=== PATIENT | male | born 1990 | race Caucasian/White ===

== ENCOUNTER 2024-10-28 08:00 | Outpatient (RCR) | payer MEDICAID, SELFPAY ==
--- NOTE | 2024-10-28 10:10 | BH.SGPN.GN ---
Behaviors/Verbalizations/Mental Status: []Pt alert and oriented, casually dressed and groomed. Eye contact good. Motor activity appropriate. Speech within normal limits. Affect congruent, mood depressed and anxious. Thoughts linear, logical, no signs of hallucinations or delusions. Client Response/Progress/Benefit: [] Pt was an active?participant in small group discussion. Pt?s group worked together to identify benefits of healthy relationships which included insight, accountability, and guidance. Group identified factors that lead to unhealthy relationships. Pt?s personal factors included past negative experience and poor boundaries. Actively participated in group experiential activity and expressed ideas to group. Benefited from increased insight and awareness of benefits of healthy relationships and factors that contribute to unhealthy relationships. Will continue IOP tx to promote mood stability, increase self-compassion, and improve daily functioning. Narrative Note: []
--- NOTE | 2024-10-28 11:10 | BH.SGPN.GN ---
Behaviors/Verbalizations/Mental Status: [] Pt alert and oriented, casually dressed and groomed. Eye contact good. Motor activity appropriate. Speech within normal limits. Affect congruent, mood anxious, Thoughts linear, logical, no signs of hallucinations or delusions. Client Response/Progress/Benefit: [] Client responded well to session, engaged and taking notes throughout. Worked with group to connect components of the experiential activity with characteristics of healthy and unhealthy relationships. Attentive during psychoeducation about characteristics of healthy, unhealthy, and abusive relationships. Client reported he would like to continue to improve communication by starting to slowly open up about feelings in IOP. Appeared to benefit from identifying current healthy relationship attributes and an area client wants to work on to build healthier relationships. Client to continue IOP to improve daily functioning, increase healthy coping skills, and prevent decompensation.
--- NOTE | 2024-10-28 14:27 | BH.MDN ---
Multi-Disciplinary Note Note 45-min Individual: Time Started:: 08:50 60-min Individual: Time Started:: 08:50 Date: 10/28/24 Purpose of session/treatment goals addressed:: To gather information on pt's treatment goals, presenting problems, history, and past treatment. Another goal was to build rapport and complete the suicide assessment screening. Eye Contact:: Good Motor Activity:: Appropriate Appearance:: Neat and Casual Speech:: Appropriate Mood:: Anxious and Depressed Affect:: Congruent Thoughts:: Linear, Logical and No evidence of hallucinations/delusions noted Staff Interventions:: CBT techniques, rapport building, strengths perspective, treatment planning, completed risk assessment / safety planning (completed CSSR-S) and goal setting Client Response:: Pt responded well to session, open to meeting with therapist. Pt referred to [email or web address] by his aoc plans intelligence officer after missing an appointment with probation due to his mental health. Pt reports he has been struggling with mental health for many years as pt recalls depression and anxiety since graduating high school. Reports his depression and anxiety have been gradually worsening in the last 8 years following the end of a 10 year relationship. Reports that he began drinking alcohol shortly after the relationship ended and began to struggle with alcohol misuse until September of 2023 when he got sober following legal issues stemming from his alcohol use. Pt was charged with assault at that time and has been on probation for the past year. Although sobriety has been a condition of his probation, he reports plans to maintain sobriety once off probation as well. Insight into the effects alcohol has had on his mental health and relationships. Pt reports that in the last year his mental health has significantly declined to the point of losing his job because he stopped showing up due to his depression. Went on to explain that he has struggled with basic functioning over that past few months as he has no energy or motivation, hopelessness and worthlessness, apathy, and loss of purpose. Explained that he has struggled with feeling like a failure which has caused his to self-sabotage relationships, his most recent job, and become estranged from his 12-year-old daughter. Expressed a desire to have a relationship with his daughter but does not feel he deserves to be in her life and has distanced himself as a result. Identified wanting to be able to better accept and love himself and is hopeful that [facility] treatment will aid in his ability to do so. Risks/Concerns:: Pt has a hx of SI, but denies any in the past few weeks. Identifies protective factors and reports ability to maintain safety. Progress Toward Goals/Plan:: Pt's first day of IOP tx. Pt shared he has never done group therapy in the past, but is keeping an open mind. Pt does not have any outpatient providers but is open to re-establishing care. Pt wants to focus on reducing the impact his mental health has on his life. Pt wants to isolate less, challenge negative thoughts, and be able to function more effectively. Pt will continue IOP tx to prevent decompensation, improve daily functioning, and gain healthy coping skills. Time Stopped:: 09:50
--- NOTE | 2024-10-28 15:00 | BH.MTP ---
[facility] Patient Information Program Physician:: Dr. Shelia Mae Primary Therapist:: KARLIE Haley Psychiatric Diagnoses Psychiatric Diagnoses:: 1.Major depressive disorder, recurrent, severe without psychosis 2. Generalized anxiety disorder 3. Alcohol use disorder in full remission for 1 year Diagnosis Code(s):: F 33.2 Estimated LOS Estimated LOS (in weeks):: 6 Problem/Goal #1 Problem/Goal #1 Stated Goal:: Pt will increase mood stability by reducing hopelessness, worthlessness, guilt, and suicidal ideations. Description of Barriers: Pt reports negative core beliefs. Pt also has history of impulsive behavior from prior substance use, currently sober, that has led to self-deprecation and legal issues. Pt also has limited support and hx of significant isolation and low motivation. Functional Impact: Pt is a 34 year-old male with a history of major depressive disorder, anxiety, PTSD, and substance use issues, sober 1 year. Pt was referred to [facility] by his investigation officer due to worsening symptoms of depression, isolation, and apathy over the past several months resulting in pt losing his job and missing probation meetings. At admission, pt endorses a depressed mood, excessive guilt, passive SI, lack of energy, lack of motivation, feeling like a burden, and anhedonia. Pt also reports anxiety, restlessness, and isolation. Goal Relevant Strengths/Supports: Pt is sober from alcohol. Pt is intelligent and has a desire to improve. Objectives Objective #1: Stated Objective: Pt will learn and utilize 2-3 healthy coping strategies to better manage depressive symptoms and reduce suicidal ideations as shown by a decrease of DMS-5 symptoms for depression and SI. Interventions: Through group and individual sessions, therapist will help pt identify triggers and warning signs of depression and guilt including emotional, physical, and behavioral changes. Therapist will teach pt various coping skills to manage symptoms and give pt tangible resources to use to regulate emotions. Therapist will use cognitive restructuring techniques and help pt gain awareness of negative thoughts that reinforce guilt and depression. Therapist will provide psychoeducation on maintenance cycles and help pt learn ways to break unhealthy maintenance cycles. Therapist will help pt incorporate behavioral activation and assist pt in setting SMART goals. Discharge Criteria: Pt will have met this goal when can report learning and using at least 2 coping skills to manage depressive symptoms and reduce isolation. Additionally, pt will have met this goal when pt's DSM-5 scores for depression decrease. Target Date: 12/12/24 Review Date: 11/19/24 Objective #2: Stated Objective: Pt will identify at least 2-3 negative self-talk messages used to reinforce negative core beliefs, worthlessness, and isolation and replace thoughts with balanced, realistic messages. Interventions: Therapist will help pt identify distorted, negative beliefs about self and replace with more realistic, affirmative messages. Therapist will use CBT and DBT to help pt increase insight to the connection between thoughts, emotions, and behaviors. Therapist will encourage pt to practice thought challenging. Discharge Criteria: Pt will have achieved this goal when can verbalize at least 2 cognitive distortions and effectively replace those thoughts with affirmative messages. Target Date: 12/12/24 Review Date: 11/19/24 Problem/Goal #2 Problem/Goal #2 Stated Goal:: Will reduce intensity of anxiety symptoms and improve ability to function through IOP program. Description of Barriers: Pt reports negative core beliefs. Pt also has history of impulsive behavior from prior substance use, currently sober, that has led to self-deprecation and legal issues. Pt also has limited support and hx of significant isolation and low motivation. Functional Impact: Pt is a 34 year-old male with a history of major depressive disorder, anxiety, PTSD, and substance use issues, sober 1 year. Pt was referred to [facility] by his investigation officer due to worsening symptoms of depression, isolation, and apathy over the past several months resulting in pt losing his job and missing probation meetings. At admission, pt endorses a depressed mood, excessive guilt, passive SI, lack of energy, lack of motivation, feeling like a burden, and anhedonia. Pt also reports anxiety, restlessness, and isolation. Goal Relevant Strengths/Supports: Pt is sober from alcohol. Pt is intelligent and has a desire to improve. Objectives Objective #1: Stated Objective: Pt will identify 2-3 anxiety triggers and 2 coping skills to use when feeling anxious to manage anxiety as shown by reducing DSM-5 scores for anxiety Interventions: Therapist will provide education on anxiety, avoidance behaviors, and maintenance cycles. Therapist will help pt explore personal symptoms and warning signs of anxiety. Therapist will teach pt coping skills to improve emotional regulation, mindfulness, and distress tolerance to help pt cope with anxiety in the moment. Discharge Criteria: Pt will have accomplished this goal when he can identify at least 2 triggers and report using 2 coping skills to manage anxiety. Additionally, pt will have accomplished this goal AEB reduction of DSM-5 scores for anxiety. Target Date: 12/12/24 Review Date: 11/19/24 Objective #2: Stated Objective: Client will identify 2-3 cognitive distortions that lead to rumination and learn 2-3 ways to manage these thoughts to better manage anxiety. Interventions: Therapist will use CBT and DBT techniques to help client gain awareness of thinking errors and learn how to more effectively handle negative thoughts. Therapist will assist client in identifying, challenging, and replacing dysfunctional thoughts with positive, more realistic thoughts. Therapist will also use self-compassion to help client set more realistic expectations. Discharge Criteria: Client will be able to successfully identify and replace at least 2 cognitive distortions reinforcing anxiety sx. Target Date: 12/12/24 Review Date: 11/19/24
--- NOTE | 2024-10-28 15:15 | BH.COMM ---
Communication Note Communication with Client Communication Note: Met with pt to complete initial paperwork and administer the CSSR-S screening and risk assessment. Pt is a moderate risk as pt denies any active SI, plan, or intent, but he has passive SI every few days. Pt reports history of one self-aborted suicide attempt about two years ago following a period of heavy drinking. Pt reported he tried to access his father?s gun safe while intoxicated and planned to shoot himself outside on the property. Pt denies telling anyone at the time and gave up when unable to open the safe. Denies any other attempts but does admit to prior preparatory behavior around that time in which he wrote a suicide note. Denies history of self-harm. Lives with parents and all firearms are locked and pt does not know the combination. Sober since September 2023. Pt is future oriented. Pt reports ability to maintain safety today. Discussed case with Dr. Dunn and pt will be admitted to [facility] tx with a diagnosis of Major Depressive Disorder, severe without psychosis. F 33.2
--- NOTE | 2024-10-29 09:00 | BH.SGPN.GN ---
Behaviors/Verbalizations/Mental Status: [] Client alert and oriented, casual appearance. Eye contact good. Motor activity appropriate. Speech within normal limits. Affect congruent, mood anxious. Thoughts linear, logical, no signs of hallucinations or delusions. Reviewed client's symptom tracker, no risk for suicidal ideation, plan, or intent. Client Response/Progress/Benefit: [] Client responded well to session AEB listening to others and sharing thoughts/feelings. Per daily symptom tracker client reports a 0/5 for depression and 2/5 for anxiety. Client reported mental positive as showing back up to [facility] for his second day. Client shared prior to coming to IOP he mostly spent his day is not leaving his house for at least 2 months. Client stated additional month when starting to get back into playing the guitar. Client stated current stressors trying to adjust to being around a lot of different people while in IOP. Noted feeling happy today. Appeared to benefit from support from peers. Will continue IOP tx to improve daily functioning, increase healthy coping skills, and prevent decompensation. Narrative Note: []
--- NOTE | 2024-10-29 10:10 | BH.SGPN.GN ---
Behaviors/Verbalizations/Mental Status: [] Eye contact is good. Motor activity is appropriate. Appearance is casual. Speech is Appropriate. Mood is depressed/anxious. Affect is flat. Thoughts are linear and logical. No evidence of psychosis. Client Response/Progress/Benefit: [] Pt participated at times during the interactive group discussions. Along with peers contributed to interactive discussion on defining what a boundary is in mental health. Pt along with peers identified challenges to setting boundaries which included; people pleasing, possible conflict, possible abandonment, fear of rejection, fear of loss, fear people won't respect the boundary, etc. Pt worked well in small group in which they identified different types of boundaries (material, sexual, intellectual, physical, emotional) and provided examples. Pt benefited from increased awareness and insight on the challenges to setting boundaries and the types of boundaries. Will continue in IOP to prevent decompensation, stabilize mood, and improve functioning.
--- NOTE | 2024-10-29 11:10 | BH.SGPN.GN ---
Behaviors/Verbalizations/Mental Status: []Eye contact is good. Motor activity is appropriate. Appearance is casual. Speech is Appropriate. Mood is depressed and anxious. Affect is congruent. Thoughts are linear and logical. No evidence of psychosis. Client Response/Progress/Benefit: []Pt responded well to session AEB listening attentively to peers and taking notes throughout. Reports connecting with rigid boundaries much of the time, however did notice difficulties with porous boundaries within his friendships and romantic relationships. Participated in group discussion brainstorming various strategies for improving healthy boundary setting. Seemed to benefit from increased awareness of how different boundary styles can impact mental health. Will continue IOP tx to prevent decompensation, improve daily functioning, and increase mood stability. Narrative Note: []
--- NOTE | 2024-10-30 08:10 | BH.NA_ITS ---
Physical Data Vital Signs Pulse Rate: 75 Blood Pressure: 126/69 Height/Weight Height: 1.85 m Weight:: 68.039 kg Weight in Pounds: 150.0 lbs Nutritional History Appetite Nutritional Instructions: Describe your appetite:: Good Additional nutritional information:: Client denies change in his appetite, but does state some of his friends say he looks like he has lost weight. Functional Assessment Sleep Pattern Describe any problems with sleeping: Client states he is sleeping about 4-5 hours per night. Sensory/Communication Assess Communication Problems Do you have difficulty understanding what people are saying?: No Medical Problems/History Pain Assessment Do you have acute or chronic pain?: No Surgical History Surgical History Have you had any surgeries? If so, list type and date:: No Substance Abuse Substance Abuse Please describe substance abuse in the last 30 days:: Client states he used to drink 12-18 beers every day or every other day, but has been sober from alcohol for almost 1 year. Client states he smokes cigarettes, about 1 ppd since the age of 19. Client denies substance use. Client states he drinks 2 cups of coffee per day and usually has 1 energy drink in the afternoons. Discussed with client risks of high caffeine intake. Mental Status Summary Mental Status Significant Findings/Observations on Appearance and Mood:: Client is alert and oriented x 4. Client is casually groomed. Client is cooperative with assessment. Client makes good eye contact. Client's voice has normal rate and volume. Client has a restricted affect. Client makes logical associations and has normal processing. Client denies delusions/hallucinations. Client denies SI. Suicide Assessment Suicidal Ideation Are you currently or have you been suicidal in the past?: Yes Suicidal Intentional Rating Scale (SIRS): Suicidal thoughts (past) Physician Notification Past Psychiatric History MH Treatment Hx Past Psychiatric Medications:: Zoloft Age of first mental health symptoms: Client states he first took Zoloft for depression around age 29 and was on it for about a year. Describe (age, circumstance, etc) any past hospitalizations: None. Current providers for mental health treatment (counselor, psychiatrist, community case manager, etc.): None. Fall Risk Assessment Age Age: Less than 60 Mental Status Mental Status: Willing & able to ask for assistance when needed Physical Status Physical Status: No problems Impairments Impairments: None Elimination Elimination: Continent AND independent Gait or Balance Gait or Balance: Walks independently Hx of Falls History of falls in the past 6 months: No known history Medications/Substances Medications/substances used within the past 24 hours or ordered to administer: None of the medications/substances list above Total Score Total Points:: 0 RN Summary of Impressions Impressions Recommendations Impressions: Psychiatric Issues: 1. Major depressive disorder, recurrent, severe without psychosis 2. Generalized anxiety disorder 3. Alcohol use disorder in full remission for 1 year 4. Primary support, legal and work issues Level of Care How do the client's current symptoms and functional deficits support need for this level of care?: Client was referred to IOP by his civil preparedness training officer after he missed an appointment with his civil preparedness training officer and had a home visit that prompted his PO to refer him to IOP due to his mental health. Client states he has felt more depressed since July and has had difficulty performing daily activities and even getting out of bed in the mornings. Client reports he is isolating himself and does not enjoy activities like he used to. Client denies SI at this time. IOP will promote gains and prevent further decompensation while providing social support and skills training.
--- NOTE | 2024-10-30 09:00 | BH.SGPN.GN ---
Behaviors/Verbalizations/Mental Status: []Pt alert and oriented, neatly dressed and groomed. Eye contact fair. Motor activity appropriate. Speech within normal limits. Affect congruent, mood anxious. Thoughts linear, logical, no signs of hallucinations or delusions. Reviewed pt?s symptom tracker, no risk for suicidal ideation, plan, or intent 10/30/24 Client Response/Progress/Benefit: []Pt was an active participant in group discussions. Attentive. Able to identify mental health wins including getting to IOP today and waking up early without scrolling on my phone and he sketched instead. Pt's stressor today is he has not been able to work due to his mental health symptoms, so he has been anxious about finances. Pt stated pt is feeling content this morning. Pt receptive to feedback from peers which pt reported was helpful. Progress noted. Benefited from group support, encouragement, and feedback. Will continue in IOP to prevent decompensation, improve daily functioning, and increase distress tolerance. Narrative Note: []
[2024-10-30 09:53] VITALS: BP 126/69; PULSE 75
--- NOTE | 2024-10-30 10:10 | BH.SGPN.GN ---
Behaviors/Verbalizations/Mental Status: []Pt alert and oriented, casually dressed and groomed. Eye contact good. Motor activity appropriate. Speech within normal limits. Affect congruent, mood content. Thoughts linear, logical, no signs of hallucinations or delusions. Client Response/Progress/Benefit: [] Pt engaged participant AEB listening attentively to others and providing input throughout group. Pt worked within their small group to identify strategies to manage inappropriate guilt. Shared a personal example of inappropriate guilt as feeling guilty for making noise when a room is quiet. Insight this leads to fear that others will hate him and over apologizing or self-sabotage. Pt wants to work on combatting inappropriate guilt by challenging distortions and improving emotion regulation skills. Pt seemed to benefit from learning about strategies to manage appropriate and inappropriate guilt. Pt will continue IOP tx to reduce promote mood stability, reinforce healthy coping, and prevent decompensation. Narrative Note: []
--- NOTE | 2024-10-30 10:10 | BH.SGPN.GN ---
Behaviors/Verbalizations/Mental Status: []Pt alert and oriented, neatly dressed and groomed. Eye contact good. Motor activity appropriate. Speech within normal limits. Affect congruent, mood depressed and anxious. Thoughts linear, logical, no signs of hallucinations or delusions. Client Response/Progress/Benefit: [] Pt was an engaged participant AEB listening attentively to others, taking notes, and providing feedback in small group discussions. Attentive during psychoeducation AEB by note taking and providing some input. Pt worked along with peers in small groups to define inappropriate guilt and appropriate guilt. Worked well in small group with peers where they identified example of inappropriate vs appropriate guilt, and the impact inappropriate guilt can have on MH. Pt identified a personal example of inappropriate guilt as taking a day off work for his mental health and then ruminating. Benefited from increased awareness of guilt and the differences between appropriate and inappropriate guilt. Plan is to continue in IOP to prevent decompensation, gain healthy coping skills, and improve daily functioning. ? Narrative Note: []
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
--- NOTE | 2024-10-30 12:59 | BH.DR.ITP ---
Initial Treatment Plan Patient Information Visit Information: ADMISSION DATE: EXPECTED LOS: 4-6 weeks Problems/Symptoms Problem #1:: Depression Symptom:: Sadness, hopelessness, worthlessness, anhedonia, biological disruption of appetite and weight, biological disruption of sleep, low energy, decreased concentration, guilt, passive thoughts of Problem #2:: Anxiety Symptom:: Worry, rumination, history of panic attacks, avoidance
--- NOTE | 2024-11-03 09:00 | BH.SGPN.GN ---
Behaviors/Verbalizations/Mental Status: [] Client alert and oriented, casual appearance. Eye contact fair. Motor activity appropriate. Speech within normal limits. Affect congruent, mood anxious. Thoughts linear, logical, no signs of hallucinations or delusions. Reviewed client's symptom tracker, no risk for suicidal ideation, plan, or intent. Client Response/Progress/Benefit: [] Client responded well to session AEB listening to others and sharing thoughts/feelings. Per daily symptom tracker client reported a 1/5, with 5 representing severe, for depression and a 1/5 for anxiety. Client reported mental health positive as writing a song over the weekend which is something that typically makes him feel better. Client reported additional mental health positive as deciding he wants to take action by reconnecting with his ex to discuss having a more active role in his daughter's life. Client stated current stressor as feeling worried that him reaching out to his ex and her family will result in them not responding well. Appeared to benefit from support from peers. Will continue IOP tx to decrease anxious avoidance, increase use of healthy coping skills, and prevent decompensation.
--- NOTE | 2024-11-03 10:10 | BH.SGPN.GN ---
Behaviors/Verbalizations/Mental Status: [] Client alert and oriented, casually dressed and groomed. Eye contact good. Motor activity appropriate. Speech within normal limits. Affect congruent, mood euthymic, Thoughts linear, logical, no signs of hallucinations or delusions. Client Response/Progress/Benefit: [] Client responded well to session, contributing to discussion and engaged during the activity. Group identified the benefits of change which included: personal growth, increased confidence, improving mental health, progressing, and becoming resilient. Worked with the group to identify barriers to change, which included: fear of failure, lack of motivation, fear of the unknown, trauma, and negative thinking. Client participated along with group in activity where they discussed the emotions related to change. Benefited from increased awareness and understanding of emotions, benefits, and barriers related to change. Will continue IOP tx to increase emotional regulation skills and challenge negative thought patterns. Narrative Note: []
--- NOTE | 2024-11-03 11:10 | BH.SGPN.GN ---
Behaviors/Verbalizations/Mental Status: [] Client alert and oriented, casually dressed and groomed. Eye contact good. Motor activity appropriate. Speech within normal limits. Affect full, mood euthymic, Thoughts linear, logical, no signs of hallucinations or delusions. Client Response/Progress/Benefit: [] Client responded well to session, attentive. Did well to process activity and work with group to relate the strategies used to overcome barriers in the activity to managing change in own life. Client identified a change they would like to learn how to handle emotions. Client identified currently being in action stage for this particular change. Client stated goal is to see his daughter. Appeared to benefit from identifying a small goal to work towards. Client will continue IOP tx to prevent decompensation and increase overall functioning. Narrative Note: []
--- NOTE | 2024-11-06 09:05 | BH.SGPN.GN ---
Behaviors/Verbalizations/Mental Status: [] Eye contact is good. Motor activity is appropriate. Appearance is casual. Speech is Appropriate. Mood is depressed. Affect is congruent. Thoughts are linear and logical. No evidence of psychosis. Reviewed daily check in sheet and no reports of suicidal ideations or intent. Client Response/Progress/Benefit: [] Pt participated at times during the group discussions. Daily symptom tracker notes 11/16 for depression/anxiety. Shared with the group that he took a very big step in reconnecting with his 12 y/o daughter by reaching out his daughter's mother. Utilized several skills to follow through with this difficult task such as opposite-action, reframing, challenging thoughts, and sitting with the uncomfortable. Also made it through with holidays sober. Decreased isolation and engaged during the holidays. Overall progress noted. Limited stressors expect finances. Pt has not been to work in several months due to mental health. Benefited from group support, encouragement, and feedback. Will continue in IOP to prevent decompensation, stabilize mood, improve functioning to return to work, and increase healthy coping. Narrative Note: []
--- NOTE | 2024-11-06 10:10 | BH.SGPN.GN ---
Behaviors/Verbalizations/Mental Status: []Patient was alert and oriented, casually dressed and groomed. motor activity congruent. speech within normal limits. Affect congruent, mood anxious. Thoughts linear, logical, no signs of hallucinations or delusion. Client Response/Progress/Benefit: []Pt participated in the group discussions AEB nodding and taking notes. Attentive during psychoeducation Goal Setting. Participated during the discussion on common barriers. Pt stated a personal barrier to accomplishing goals are judgment of self that goals aren't hard enough and self-doubt. Group also identified benefits of goals as sense of purpose, improved self-confidence, more motivation for other goals, and improved mental health. Pt identified personal benefits to goal setting. Benefited from increased awareness of mental health benefits of goals as well as psychoeducation on SMART goal criteria. Will continue in IOP to decrease anxious avoidance, increasing healthy coping skills, and prevent decompensation.
--- NOTE | 2024-11-06 11:10 | BH.SGPN.GN ---
Behaviors/Verbalizations/Mental Status: [] Pt alert and oriented. Appearance is casual. Eye contact good. Motor activity appropriate. Speech within normal limits. Affect is depressed. Mood is congruent. Thoughts linear, logical, no signs of hallucinations or delusions. Client Response/Progress/Benefit: [] Pt was engaged during discussion and experiential activity. Completed the worksheet challenging them to develop a personal SMART goal. Pt chose a SMART goal to check in with his daughter's mother to show that he is stable and reliable once a week. Hopes that this will lead to having a relationship with is daughter which will improve his overall mental health. Identified obstacles as fear, isolation, and lack of support. Benefited from this group by developing a short-term SMART goal related to mental health. Will continue IOP to prevent decompensation, increase healthy coping, and improve functioning. Narrative Note: []
--- NOTE | 2024-11-07 09:00 | BH.SGPN.GN ---
Behaviors/Verbalizations/Mental Status: [] Eye contact is good. Motor activity is appropriate. Appearance is casual. Speech is Appropriate. Mood is depressed. Affect is congurent. Thoughts are linear and logical. No evidence of psychosis. Reviewed daily check in sheet and no reports of suicidal ideations or intent. Client Response/Progress/Benefit: [] Pt participated at times during the group discussions. Attentive. Shared that he has been practicing and utilizing skills such as thought challenging and reframing. Feels that he is getting better at these skills which has led to improve mental health, decreased isolation, increased socialization, and increase engagement with life and support. Progress noted. Benefited from group support, encouragement, and feedback. Will continue in IOP to prevent decompensation, decrease isolation, increase healthy coping, and improve functioning to return to work. Narrative Note: []
--- NOTE | 2024-11-07 10:10 | BH.SGPN.GN ---
Behaviors/Verbalizations/Mental Status: []Eye contact is fair. Motor activity is appropriate. Appearance is casual. Speech is Appropriate. Mood is anxious. Affect is congruent. Thoughts are linear and logical. No evidence of psychosis. Client Response/Progress/Benefit: [] Pt was engaged and participating throughout, providing input and taking notes. Participated in an interactive discussion on defining anxiety and identifying cognitive and physiological symptoms of anxiety. The group discussed the role of anxiety on isolation, avoidance, and who this emotion impacts their ability to start and complete activities/goals. Pt identified their physical/physiological signs of anxiety which includes: rapid breathing, shaky hands, neck pain, and increased heart rate. Benefited from increased awareness and insight on anxiety and its impact. Will continue in IOP to decrease anxious avoidance, increase healthy coping skills, and prevent decompensation.
--- NOTE | 2024-11-07 11:30 | BH.MDN ---
Multi-Disciplinary Note Note 30-min Individual: Time Started:: 11:30 Date: 11/07/24 Purpose of session/treatment goals addressed:: Utilized the session to review progress and current symptoms as well as further clarify treatment plan goals. Eye Contact:: Good Motor Activity:: Appropriate Appearance:: Casual Speech:: Appropriate Mood:: Anxious Affect:: Congruent Thoughts:: Linear, Logical and No evidence of hallucinations/delusions noted Staff Interventions:: psychoeducation on: (briefly discussed cognitive distortions. ), rapport building and treatment planning Client Response:: According to pt his first week in IOP has been beneficial. I feel so much better when I'm doing something. Significant isolation and avoidance for several months prior to IOP. Benefiting from psychoeducation and support. Nice to know I'm not the only one with these issues. Also believes that facing his mental health rather than avoiding it has been very helpful and motivating as well. In discussing goals pt identified that he struggles to take action for fear of failing or not being perfect. Discussed perfectionistic beliefs and unrealistic expectations of himself. These unrealistic expectations have been an obstacles to having a relationship with his daughter. Hoping that through IOP and mental health treatment he can work to reconnect with his ex (Zoila) and their child. Has not spoken with ex in over a year, however did recently reach out to ex's mother. Shared that he will function well for several months and then begin to slowly decompensate to the point of severe isolation, not showing up for work, and not engaging with family. He feels his depression worsening however feels powerless. Agreeable that a concrete plan to use when depressed would be helpful. Risks/Concerns:: No risks or concerns noted. Denies SI, plan, or intent. Progress Toward Goals/Plan:: Progress noted as he reports begin to utilize coping strategies such as opposite-action, reframing, and thought challenging. Decreased isolation, increased energy, and increase social engagement. Consistent attendance. Appears engaged in groups. Started a new medication. Pt has several mistaken core beliefs and cognitive distortions that inhibit his ability to take action on goals, work, and overall functioning. Recent severe isolation related to depressive episode resulted in consequences from PO, job, and relationships. Will continue in IOP to prevent decompensation, stabilize mood, increase healthy coping, and improve functioning to return to work. Time Stopped:: 12:00
--- NOTE | 2024-11-11 09:05 | BH.SGPN.GN ---
Behaviors/Verbalizations/Mental Status: [] Pt alert and oriented, casually dressed and groomed. Eye contact good. Motor activity appropriate. Speech within normal limits. Affect congruent, mood content. Thoughts linear, logical, no signs of hallucinations or delusions. Reviewed pt?s symptom tracker, no risk for suicidal ideation, plan, or intent 11/11/24 Client Response/Progress/Benefit: [] Pt was an active participant in group discussions. Attentive. Able to identify mental health wins including focusing on what is in his control while family was visiting and challenging himself not to let small comments bother him. Additional win noted as asking to borrow his mother's vehicle, explaining that he often struggles with asking for things from others. Current stressor noted as finances. Benefited from group support, encouragement, and feedback. Will continue in IOP to prevent decompensation, promote mood stability, and continue to improve use of thought challenging. Narrative Note: []
--- NOTE | 2024-11-11 10:10 | BH.SGPN.GN ---
Behaviors/Verbalizations/Mental Status: [] Eye contact is fair. Motor activity is appropriate. Appearance is casual. Speech is Appropriate. Mood is dysthymic. Affect is congruent. Thoughts are linear and logical. No evidence of psychosis. Client Response/Progress/Benefit: [] Pt was an active participant in group discussions. Attentive during psychoeducation. Contributed during interactive discussions in which peers attempted to define crisis. Group identified crisis examples. Group also worked together to identify warning signs and unhealthy responses to crisis which included shutting down, isolation, avoidance, over-thinking, disordered eating, and self-harm. Pt identified top 3 warning signs as: increased negative thinking, overuse of distractions, and lack of self-care. Benefited from increased understanding of crisis and awareness of personal responses to crisis. Pt will continue IOP tx to decrease anxious avoidance, improve use of healthy coping, and prevent decompensation.
--- NOTE | 2024-11-11 11:15 | BH.SGPN.GN ---
Behaviors/Verbalizations/Mental Status: []Pt alert and oriented, appropriate grooming/appearance. Eye contact fair. Motor activity appropriate. Speech within normal limits. Affect congruent, mood anxious. Thoughts linear, logical, no signs of hallucinations or delusions. Client Response/Progress/Benefit: [] Pt was an active participant in group discussions. Attentive during psychoeducation. In small group pt along with peers developed an active plan for their crisis warning signs. Pt identified three crisis warning signs as well as an action plan for each. One crisis warning sign was increased negative thinking. Pt identified strategies to help with this such as: opposite action, taking notice of ?when I?m being self-critical?, and telling himself two mental health wins. Benefited from increased awareness of crisis warning signs and by developing crisis intervention strategies. Will continue in IOP to reduce negative thinking patterns, improve daily functioning, and reduce avoidance. Narrative Note: []
== END 2024-11-11 23:59 ==
LOC: BHIOP 08:00
PROVIDERS: Referring Provider Psychiatry & Neurology Psychiatry; Visit Provider Psychiatry & Neurology Psychiatry
DX: F33.2 Major depressive disorder, recurrent severe without psychotic features (principal)
CPT/HCPCS: H2012; H2020; S9480; 90832; 90837

== ENCOUNTER 2024-11-13 07:08 | Outpatient (RCR) | payer MEDICAID, SELFPAY ==
[2024-11-12 00:30] VITALS: BP 126/69; PULSE 75
--- NOTE | 2024-11-13 10:10 | BH.SGPN.GN ---
Behaviors/Verbalizations/Mental Status: [] Eye contact is good. Motor activity is appropriate. Appearance is casual. Speech is Appropriate. Mood is dysthymic. Affect is congruent. Thoughts are linear and logical. No evidence of psychosis. Client Response/Progress/Benefit: [] pt was an active participant in group discussion. Engaged and attentive during psychoeducation and interactive discussion on coping skills, why people use unhealthy coping skills, how to replace unhealthy coping skills, and internal vs external coping skills. Attentive as peers came up with list of unhealthy coping skills. Group discussed the effects of maladaptive coping skills on mental health. Benefited from increased understanding of unhealthy coping skills and the need for developing healthy internal and external coping skills. Actively participated during experiential group activity and was able to related this activity to group topic. Will continue in IOP to prevent decompensation, decrease isolation, increase healthy coping, and improve functionoing. Narrative Note: []
--- NOTE | 2024-11-13 11:15 | BH.SGPN.GN ---
Behaviors/Verbalizations/Mental Status: []Pt alert and oriented, casually dressed and groomed. Eye contact good. Motor activity appropriate. Speech within normal limits. Affect congruent, mood anxious and dysthymic. Thoughts linear, logical, no signs of hallucinations or delusions. Client Response/Progress/Benefit: [] Pt responded well to session, taking notes and contributing when prompted. Group discussed the different categories of coping skills which included distraction, emotional release, grounding, self-love, and thought challenging. Pt participated in creating a coping skills ?menu? from the different categories of coping skills. Pt's coping skill menu included: walks, talking to supports, 5-senses, and self-compassion. Appeared to benefit from increasing repertoire of healthy coping skills. Will continue IOP to prevent decompensation, improve daily functioning, and promote mood stability. Narrative Note: []
--- NOTE | 2024-11-13 12:15 | BH.MDN ---
Multi-Disciplinary Note Note 60-min Individual: Time Started:: 09:00 Date: 11/13/24 Purpose of session/treatment goals addressed:: Purpose of session was to discuss current sx, stressors, and areas of progress. Additionally, began working on challenging distortions reinforcing anxiety and feelings of shame. Eye Contact:: Good Motor Activity:: Appropriate Appearance:: Neat and Casual Speech:: Appropriate Mood:: Euthymic and Anxious Affect:: Congruent Thoughts:: Linear, Logical and No evidence of hallucinations/delusions noted Staff Interventions:: thought challenging, psychoeducation on: (shame vs. guilt, introduce cognitive distortions), CBT techniques, strengths perspective and goal setting Client Response:: Pt responded well to session, open to meeting with therapist. Pt reported he has overall been doing well the last few weeks and finds IOP treatment to be beneficial. Reports connected with fellow participants and is making connections to information he is learning in group sessions. Noted that his consumer safety officer has noticed improvements in his mood and motivation levels and has dropped pt?s required probation meetings down to 1x/monthly. Reflected on the support the probation department has provided him and that he has been pleasantly surprised by this. Went on to indicate that he still has not followed through with the goal of reaching out to his former employer. Noted discussing this with his consumer safety officer and that she had aided in challenging pt?s thoughts about this. Shared struggling however with ?feeling silly?, not wanting to be center of attention, and shame. Receptive of discussion reviewing guilt vs. shame and out his behaviors from personal identity. Did well to work with therapist on challenging associated distortions and identifying the likelihood of his catastrophizing thoughts actually occurring. Expressed feeling more comfortable having the conversation in person and does better with deadlines. Identified a goals of stopping in to discuss employment and apologize this coming Sunday. Shared ?I just need to do it, I?ll feel better if I do?. Pt went on to report that since ~[age] years old he has struggled with knowing who he is and how to show up for himself. Reports he used to be very outgoing in high school but has become more reserved and concerned about other?s opinions of his since. Shared wanting to work on self-confidence as he feels this has held him back and reinforced a lot of his negative core beliefs about self and fear of failing. Identified his younger brother is most similar to him and believes that if he can work on being more comfortable with vulnerability, he may feel more confident in himself as a result. Reports plans to reach out to him regarding his mental health as well. Risks/Concerns:: No SI or thoughts of as of this date 11/13/24 Progress Toward Goals/Plan:: Progress noted. Pt reports improved mood, motivation, and sense of hope since beginning IOP tx. He has attended all scheduled sessions and been actively engaged thus far. Pt reports making an effort to communicate and process with his family more; however, this is complicated as he feels they do not understand mental health. Trying to socialize more online and rebuild support system. Recently reached out to his daughter's maternal family and is working to rebuild a relationship with her. Anxiety preventing pt from reaching out to employer but pt reports plans to use opposite action and challenge himself to do so this coming 11/17/23. Continues to struggle with distorted thought patterns, negative core beliefs about self, low confidence, and significant anxiety. Recommended continued IOP tx to improve mood stability, increase self-compassion, and prevent decompensation. Time Stopped:: 09:56
--- NOTE | 2024-11-13 14:59 | BH.PSA ---
Source of Information Presenting Problems/Circumstances Problems, Referral Source, Mental Status, Client: Pt is a 34 year-old male with a history of major depressive disorder, anxiety, PTSD, and substance use issues, sober 1 year. Pt was referred to [facility] by his information assurance officer due to worsening symptoms of depression, isolation, and apathy over the past several months resulting in pt losing his job and missing probation meetings. At admission, pt endorses a depressed mood, excessive guilt, passive SI, lack of energy, lack of motivation, feeling like a burden, and anhedonia. Pt also reports anxiety, restlessness, and isolation. Psychiatric Presentation Psych Issues & Need for Admission Psychiatric Issues:: Depression, SI, anxiety, hx of alcohol use disorder, sober 1 yearcurrently Past Psychiatric History MH Treatment Hx Treatment History: No psych admits ever. No suicide attempts ever. Not linked with mental health providers at present. He was first depressed at age 26 and took his first psych meds at age 28 which was Zoloft for 1 year and it did help. He may have taken Prozac in the past. He had his first counseling at age 28 when he was depressed and he was increasing his alcohol use at the time also. First hospitalization:: Denies Most recent hospitalization:: Denies Medication Trials:: Yes (zoloft but stopped due to alcohol use at the time) ECT Therapy:: No Age of first mental health symptoms: Pt reports anxiety and depression started around age 19 following h.s. graduation Current providers for mental health treatment (counselor, psychiatrist, onsite case manager, etc.): Denies, will be connected prior to [facility] d/c Development & Family of Origin Childhood Significant Childhood Events: He was born and raised in the [facility]. He describes his childhood as good and denies any verbal, emotional, physical or sexual abuse ever. Reports his parents were always supportive but has high expectations of him and he felt pressure to do something of note/value Family Who currently lives in your home?: Pt lives with his parents and younger brother in their home and several animals. Describe family composition:: Pt is the middle of three children. He has a brother 5 years older and one 12 years younger. He is closer with the younger brother. His parents are supportive but pt feels they don't always know what to say around him. Pt has a 12 year old daughter whom lives in [place] and he is currently estranged from but would like to rekindle this relationship. Family History Family Hx of Psychiatric or AOD Problems: Mother and father are both in their 60s. Mother has a history of depression and anxiety. No suicides in the family. No substance issues in the family. Ethnicity Culture Do you identify yourself with any particular cultural, ethnic background, or community?: No Sexuality Sexual Orientation: Heterosexual Spirituality Congregational Do you currently identify with any organized buddhist?: Unspecified Beliefs Is there a particular form of support from this community you can use for your recovery?: No Mental Status Memory Recent Memory: Fair Remote Memory: Fair Concentration Concentration: Fair Eye Contact Eye Contact: Good Speech Speech: Articulate and Congruent Thought Process Thought Process: Logical Insight: Fair Judgment: Fair Behavior: Anxious Orientation Orientation: Time, Person, Place and Situation Appearance Appearance: Appropriate Mood Mood: Anxious and Depressed Affect Affect: Appropriate/calm Suicide Assessment Suicidal Ideation Have you ever felt like hurting yourself?: Yes Please explain:: hx of SI with plan and intent. Were you using ETOH/drugs at the time?: No Suicidal Intentional Rating Scale (SIRS): Suicidal thoughts (past) Physician Notification Violent Behavior/Abuse History Homicidal Ideation Do you have any homicidal thoughts? If so, explain:: No Abuse Have you ever been abused?: No Life Events Are there any other significant life events?: Financial loss (pt not currently working), Hardships (pt on probation for DV) and Loss of custody of child(renetta) (Pt daughter lives with ex in [place] and pt currently estranged. no legal loss of custody) Safety Do you ever feel threatened in your home? If yes, describe:: No Adult Social History Age 19 to Present Describe your current support system:: Pt reports his parents and several friends online are supports, Pt information assurance officer also a support Substance Use Substance Substance Use Type: Alcohol (sober 1 year), Tobacco (daily cigarette smoking) and Caffeine (2 cups of coffee and 1 energy drink/ daily) IV Substance Use Do you have a history of IV use?: denies Leisure/Social Activities Interests What do you enjoy or might be interested in learning about?: Pt enjoys art, music, writing, time with animals, and hiking Education & Occupational Histo Education What is your level of education?: High School Do you have any learning disabilities?: No Occupation List any current or past employment:: 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 If yes, describe:: No Court Orders Have you had any past court orders for psychiatric treatment?: No Do you have a present court order for psychiatric treatment?: No Problem Checklist Current Problem Areas Problem List: Depressed mood/sad, Anxiety, Inattention, Substance use and Additional psychosocial stressors (relationship with daughter) Discharge Planning Needs Anticipated Follow-Up Mental Health Center (Name/Phone Number):: not connected, will be prior to discharge Private Therapist/Psychiatrist:: to be connected Family and Caregiver Contacts:: Mother and father Release of Information Signed:: Yes [employer] Assessment Client's Needs What are the client's feelings about the program?: Pt is anxious but hopeful the program will allow him to better understand and manage his mental health sx in order to get back to activities of daily living What are the client's goals?: Self-compassion, more realistic expectations, and better anxiety management Diagnoses Diagnoses Diagnosis #1:: Major depressive disorder, recurrent, severe without psychosis Diagnosis #2:: Generalized anxiety disorder Diagnosis #3:: Alcohol use disorder in full remission for 1 year Interpretive Summary Interpretive Summary Interpretive Summary: The patient is a 34-year-old single, male with a history of depression and history of alcohol abuse (sober x 1 year) who was referred to the [facility] behavioral health IOP by his operations officer afloat due to worsening symptoms over the past 2 months. The patient missed a operations officer afloat appointment 6 weeks ago and the operations officer afloat went out to the patient's house and referred him to the IOP. The patient had stopped going to work and was hard for him to get out of bed. 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 He is on probation for legal issues resulting in an assault charge on the patient by his ex-girlfriend while he was intoxicated in September 2023. He was charged with strangulation. He is also estranged from his 12-year-old daughter who has with a past girlfriend and feels this estrangement is his fault because he somewhat neglected her due to his mental health issues. He has been isolating himself and avoidance. He has limited support and states he has no one to talk to or maybe he could try talking to his dad. He endorses sadness, hopelessness which has improved a little since starting the IOP. He endorses worthlessness, guilt, anhedonia although he does not enjoy somewhat [employer] and video games. He endorses low energy and decreased concentration. He has passive thoughts of but these are now resolving. He denies suicidal ideation, plan for suicide, homicidal ideation, hallucinations, delusions or manda ever. He denies any history of self-harm but described some self as a worrier by nature. His last panic attack was 6 weeks ago. He denies OCD, eating disorder, trauma, PTSD, seizure or head trauma. Treatment Plan Recommendations Recommendations Guidelines Recommendations:: The patient will start the IOP and behavioral health at [facility] as the structure, support, education and group therapy will hopefully prevent worsening of the patient's symptoms which could result in hospitalization.
--- NOTE | 2024-11-17 09:43 | BH.COMM ---
Communication Note Communication with Client Communication Note: Pt called to cancel group for the day due to inclement weather and reschedule for later in the week.
--- NOTE | 2024-11-18 09:45 | BH.COMM ---
Communication Note Communication with Client Communication Note: Pt called to cancel group for the day due to inclement weather and reschedule for later in the week.
--- NOTE | 2024-11-19 09:45 | BH.COMM ---
Communication Note Communication with Client Communication Note: Pt scheduled for IOP group and individual sessions today but did not show or call to cancel. A message was left encouraging pt to call back and follow-up.
--- NOTE | 2024-11-19 14:14 | BH.MTP_ITS ---
Treatment Plan Review Demographics Date of Admission:: 10/28/24 Date of Treatment Plan Review:: 11/19/24 Admitting Diagnoses:: 1. Major depressive disorder in full remission 2. Generalized anxiety disorder 3. Alcohol use disorder in full remission for 1 year 4. Primary support, legal and work issues Current Diagnoses:: 1. Major depressive disorder in full remission 2. Generalized anxiety disorder 3. Alcohol use disorder in full remission for 1 year 4. Primary support, legal and work issues Patient Status Patient's Response to Treatment:: Pt is responding mostly well to treatment AEB his mostly consistent attendance, engagement in group, and connection with peers. At times however, pt struggles with falling into depression maintenance cycle and sleeping all day which has lead to missing scheduled sessions over the past week, consistent attendance prior to that. Pt is engaged in group sessions AEB completing worksheets, taking notes, giving feedback. Pt's overall DSM-5 sco res have decreased since admission and his depression and anxiety are reduced as well. Pt is working on distress tolerance and increasing self-confidence and self-compassion. Status of Current Problems and Symptoms: Pt's overall symptoms have decreased since admission, but pt's anxiety and depression continues to be highly influenced by self-talk and pt tendency to avoid discomfort. Progress Problem #1: Problem Name:: Depression, negative thoughts Status of Goals:: Objective 1- in progress. Pt's DSM-5 scores for depression have decreased since admission; however, pt continues to struggle with significant negative self-talk and isolative behaviors. Pt does report that the structure of IOP has helped him and he is finding it motivating to engage in hobbies upon returning home on days he attends group. Objective 2- in progress. Pt has learned about the different cognitive distortions as well as core beliefs that impact his view of self. Pt is working on not minimizing his problems, not giving up when faced with unexpected barriers, and not labeling himself. Team Recommendations:: Team recommends continue work. Pt continues to struggle with isolation and negative self-talk. Pt also encouraged to track daily accomplishments and begin challenging distortions. Problem #2: Problem Name:: Anxiety Status of Goals:: Objective 1- in Progress. Pt is able to identify anxiety management skills and when he has urges to engage in unhealthy coping skills to avoid anxiety. Pt is working on using mindfulness and healthy exposure more consistently. Objective 2- not complete. Pt's DMS-5 scores have minimally decreased for anxiety since admission. And pt is recommended continued focus on catching and challenging anxious thoughts reinforcing his anxiety. Team Recommendations:: Team recommends continued goals and objectives to reinforce skills and reduce symptoms. Team recommends pt continue working on using skills consistently, so they become more habitual and to practice acceptance to avoid more conflict.
--- NOTE | 2024-11-25 09:05 | BH.SGPN.GN ---
Behaviors/Verbalizations/Mental Status: [] Eye contact is good. Motor activity is appropriate. Appearance is casual. Speech is Appropriate. Mood is depressed. Affect is flat. Thoughts are linear and logical. No evidence of psychosis. Reviewed daily check in sheet and no reports of suicidal ideations or intent. Client Response/Progress/Benefit: [] Pt participated when prompted. Attentive. Daily symptom tracker notes 12/17 for depression. Admitted that he had missed several days of IOP due to mental health decompensation. Shared an event that triggers guilt, ruminations, and depression which resulted in isolation. This is typical cycle for patient. It required a call and consequences from support to motivate him to return to IOP. ? I?m glad I did?. Regression noted. Benefited from group support, encouragement, and feedback. Will continue in IOP to prevent decompensation, increase healthy coping, and improve functioning Narrative Note: []
--- NOTE | 2024-11-25 10:15 | BH.SGPN.GN ---
Behaviors/Verbalizations/Mental Status: [] Client alert and oriented, casually dressed and groomed. Eye contact good. Motor activity appropriate. Speech within normal limits. Affect congruent, mood dysthymic. Thoughts linear, logical, no signs of hallucinations or delusions. Client Response/Progress/Benefit: [] Pt responded well to session AEB sharing and listening attentively to others. Group provided examples of benefits of having social support, including: validation, help in coping with stressors, company, and accountability. Pt also participated in group discussion regarding the barriers to accessing support identifying examples to include: negative thinking, lack of communication, and fear of being a burden or judgement. Shared struggling personally with lack of awareness, poor communication, and isolation. Pt participated in experiential activity illustrating the impact communication, boundaries, and patience play in creating healthy support systems. Pt appeared to benefit from increased knowledge of the benefits of social support and greater self-awareness. Pt to continue IOP to improve mood stability, increase consistent use of healthy coping skills to maintain mood stability and sobriety, and prevent decompensation. Narrative Note: []
--- NOTE | 2024-11-25 11:15 | BH.SGPN.GN ---
Behaviors/Verbalizations/Mental Status: [] Eye contact is good. Motor activity is appropriate. Appearance is casual. Speech is Appropriate. Mood is depressed. Affect is congruent. Thoughts are linear and logical. No evidence of psychosis. Client Response/Progress/Benefit: [] Pt participated throughout AEB contributing to discussion, providing personal examples, and taking notes. Attentive and provided input on types and examples of support (emotional, tangible, informational, and social). Pt able to identify current support system and barriers that get in the way of using supports (isolation, feeling like a burden, substance abuse, expectations, lack of awareness). Able to identify individuals in his life who provide tangible and informational support. Pt seemed to benefit from identifying the type of support pt needs to work on improving. Will continue in IOP to prevent decompensation, stabilize mood, and improve functioning. Narrative Note: []
--- NOTE | 2024-11-26 10:10 | BH.SGPN.GN ---
Behaviors/Verbalizations/Mental Status: [] Client alert and oriented, casually dressed and groomed. Eye contact good. Motor activity appropriate. Speech within normal limits. Affect flat, mood euthymic. Thoughts linear, logical, no signs of hallucinations or delusions. Client Response/Progress/Benefit: [] Client was an active participant in group discussions. Attentive during psychoeducation on 4 types of conflict styles (Competing, Collaborating, Avoiding, and Accommodating). Worked with group to define conflict and identify how conflict is helpful. With peers, pt identified barriers to addressing or managing conflict which included: trauma, unmanaged emotions, and cognitive distortions. Client believes they use avoidant style of conflict resolution. Client shared this style leads to their resolution being dependent on others and often not getting his needs met. Benefited from group due to increase insight and awareness of benefits to conflict, conflict styles, and obstacles to managing conflict. Will continue in IOP to prevent decompensation, gain healthier core beliefs, and increase functioning. Narrative Note: []
--- NOTE | 2024-11-26 11:10 | BH.SGPN.GN ---
Behaviors/Verbalizations/Mental Status: [] Client alert and oriented, casually dressed and groomed. Eye contact fair. Motor activity appropriate. Speech within normal limits. Affect congruent, mood anxious. Thoughts linear, logical, no signs of hallucinations or delusions. Client Response/Progress/Benefit: [] Client engaged in session AEB contributing to discussion and engaging in small group. Attentive during discussion on strategies for more effectively managing conflict in personal life. Client participated in small group for activity and did well practicing how to manage conflict scenarios. Client given handout on DEAR MAN with strategies to to communicate effectively in conflict. Client indicated what needs improvement in conflict for them. Appeared to benefit from gaining strategies to help client better manage conflict. Will continue IOP tx to increase consistent use of healthy coping skills, challenge negative thoughts, and prevent decompensation.
--- NOTE | 2024-11-26 11:23 | BH.MDN ---
Multi-Disciplinary Note Note 60-min Individual: Time Started:: 09:00 Date: 11/26/24 Purpose of session/treatment goals addressed:: Purpose of session was to address tx plan goal #1, objs #1 & #2 Eye Contact:: Good Motor Activity:: Appropriate Appearance:: Casual Speech:: Appropriate Mood:: Euthymic Affect:: Congruent Thoughts:: Linear, Logical and No evidence of hallucinations/delusions noted Staff Interventions:: motivational interviewing, psychoeducation on: (maintenance cycles and use of behavioral activation in breaking these), CBT techniques, strengths perspective and goal setting Client Response:: Pt receptive of session, engaged throughout. Reports missing IOP groups last week due in part to illness, as well as falling back into isolating as a result of being sick. Noted that he was able to recognize the impact of laying around and isolating on his mood and mental health. 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 to break the cycle of depression and get him back on track. Noted that since returning to group this week he has seen improvements in his motivation, general mood, and evidence that ?I can bounce back from my depression unlike times in the past?. Reports that IOP tx has helped with beginning to ?feel a peace I haven?t felt in awhile?, attributing this to acknowledging and learning to work through his emotions rather than avoid them. Went on to describe taking time to write some music over the weekend as a form of emotional release related to a recent stressor outside of pt?s ability to address. Did well to lower his expectations while doing so and allow himself to write without judgement rather than pressure for the music to be exceptional. Indicates that this was cathartic and motivated him to apply the same approach to sketching over the weekend. Reflected that lowering the expectations surrounding artistic expression has allowed for him to enjoy it for the first time in a while. Identified a need to continue with intentional engagement in his hobbies and interests, as well as improving consistency of follow-through in regular daily self-care on days he does not have anything planned, as pt noted he is more likely to fall into unhealthy distractions. Risks/Concerns:: No SI or thoughts of as of this date 11/26/24 Progress Toward Goals/Plan:: Progress variable. Pt reports some regression while out sick last week in which he began falling back into isolative, negative thinking, and napping as avoidance. Did however do well to identify these warning signs and utilize opposite action, self-compassion, and encouragement from supports to re-engage in treatment as well as actively begin implementing skills again. Pt reports overall improved mood and hope for his future. Increased engagement in hobbies however continues to avoid reaching back out to work or his daughter's maternal side of the family. Recommended continued IOP tx to improve consistent skill application, reduce avoidance, and promote mood stability. Time Stopped:: 10:11
--- NOTE | 2024-11-26 12:13 | PCM.BH.PN_ITS ---
Progress Note Progress Note: History of Present Illness/Interim History: The patient is a 34-year-old single, male with a history of depression and alcohol abuse (sober x 1 year) who is seen in follow-up at the [facility] behavioral health [facility]. He was referred by his hospital admissions officer to the IOP. I last saw the patient 3-1/2 weeks ago and blood work was ordered but the patient has not obtained this blood work yet. The patient was placed on Zoloft at that appointment and has been tolerating it well. According to staff the patient's attendance has not been very consistent. The patient states that he feels a lot better and much less anxious. He denies any racing heart or racing thoughts now. He is still using some energy drinks but much less than before. He denies any alcohol or drug use. He no longer has hopelessness, worthlessness, guilt or anhedonia and is enjoying [employer] and video games. He is getting about 6 to 7 hours of sleep at night. He denies passive thoughts of now. He denies suicidal ideation, plan for suicide, homicidal ideation, hallucinations or delusions. He denies any panic attacks since last visit. Current Psychiatric Medications: [] Zoloft 25 mg p.o. daily (x 3-1/2 weeks). Mental Status Examination: [] The patient is a 34-year-old slender male who appears normal for stated age and is ambulatory with a normal gait. He has no psychomotor agitation or retardation and is cooperative during the interview. Eye contact is good and speech is normal rate and rhythm and fluent with no pressure. Mood is mildly anxious. Affect is mildly constricted. Thought process is goal-directed and organized. Thought content: The patient feels he is better. There is no evidence of passive thoughts of , suicidal ideation, plan for suicide, homicidal ideation, hallucinations or delusions. Reality testing is intact. Intelligence is average. Judgment is intact. Insight fair. Impulsivity moderate. Diagnoses: [] 1. Major depressive disorder, recurrent, moderate 2. Generalized anxiety disorder 3. Alcohol use disorder in full remission for 1 year 4. Primary support, legal and work issues Plan: [] The patient will continue the IOP in behavioral health at [facility] as the structure, support, education and group therapy has benefited the patient and prevented worsening of the patient's symptoms. The patient felt safe during the interview and if it anytime he does not feel safe he has agreed to let us know or go to the emergency room. The risk, options, possible complications and side effects of the medication were discussed with the patient again and he understands and accepts these. He agrees to continue to try to decrease energy drinks and to stay sober from all drug use. He agrees to get his blood work done. He agrees to increase his Zoloft to 50 mg p.o. daily and a prescription is sent in for this. He will continue to follow-up with his outpatient providers and I will see the patient in follow-up in 2 to 3 weeks.
--- NOTE | 2024-11-28 09:05 | BH.SGPN.GN ---
Behaviors/Verbalizations/Mental Status: []? Eye contact is good. Motor activity is appropriate. Appearance is casual. Speech is Appropriate. Mood is content and anxious. Affect is congruent. Thoughts are linear and logical. No evidence of psychosis. Reviewed daily check in sheet and no reports of suicidal ideations or intent.? Client Response/Progress/Benefit: []? Pt was an active participant in group discussion. Attentive. Shared with the group mental health wins including spending time looking around the store when going to pick-up his meds rather than going in as quickly as possible. Noted that this resulted in finding a new CD for himself and spending time on increased self-care. Current stressor noted as a phone call that he continues to avoid. Insight that his anticipation about the call is likely worse than the call itself. Progress noted. Benefited from group support, encouragement, and feedback. Will continue in IOP to prevent decompensation, increase healthy coping, and improve communication.? Narrative Note: []
--- NOTE | 2024-11-28 10:10 | BH.SGPN.GN ---
Behaviors/Verbalizations/Mental Status: [] Pt alert and oriented, casually dressed and groomed. Eye contact good. Motor activity appropriate. Speech within normal limits. Affect congruent, mood content,Thoughts linear, logical, no signs of hallucinations or delusions. Client Response/Progress/Benefit: [] Pt receptive to session AEB contributing to group discussion, as well as listening attentively to others, and taking notes. Worked with group to brainstorm the positive and negative aspects of stress on physical and mental health as well as the impact of distress on performance, relationships, and mental health. Pt shared their top stressor to be: relationship with daughter. Shared when feeling overwhelmed with stress pt tends to avoid. Benefited from increased awareness of positive and negative stress as well as how stress impact individuals. Will continue in IOP to increase functioning and prevent decompensation. Narrative Note: []
--- NOTE | 2024-11-28 11:10 | BH.SGPN.GN ---
Behaviors/Verbalizations/Mental Status: [] Pt alert and oriented, casually dressed and groomed. Eye contact good. Motor activity appropriate. Speech within normal limits. Affect congruent, mood content, Thoughts linear, logical, no signs of hallucinations or delusions. Client Response/Progress/Benefit: [] Pt was an attentive participant in group discussions and actively engaged during experiential activity, doing well to regulate their emotions throughout the activity and work with peers. Attentive during psychoeducation on the 4 A's (Avoid, adapt, alter, accept) of coping with stress. Shared that they would benefit from accepting approach with accepting that he has been absent, but is currently willing to change. Was able to identify the connection between the experiential activity and utilization of stress management skills. Benefited from increased awareness of stress management strategies. Pt will continue IOP to increase self care and prevent decompensation. Narrative Note: []
--- NOTE | 2024-12-03 09:00 | BH.SGPN.GN ---
Behaviors/Verbalizations/Mental Status: [] Eye contact is good. Motor activity is appropriate. Appearance is casual. Speech is Appropriate. Mood is anxious. Affect is congruent. Thoughts are linear and logical. No evidence of psychosis. Reviewed daily check in sheet and no reports of suicidal ideations or intent. Client Response/Progress/Benefit: [] Pt was an active participant in group discussions. Attentive. Daily symptom tracker notes 11/16 for anxiety.Followed through with goal to connect with certain people in his life. Reports being more present with his family at home as well. Decreased isolation and increased engagement. Feeling content and has been utilizing opposite action as primary skill. He discussed how small changes in his actions such as watching TV in living with his mom can significantly improve his day and mental health. Progress noted. Benefited from group support,encouragement, and feedback. Will continue in IOP to prevent decompensation, stabilize depression, decrease isolation, and improve functioning. Narrative Note: []
--- NOTE | 2024-12-03 11:30 | BH.MDN ---
Multi-Disciplinary Note Note 45-min Individual: Time Started:: 11:33 Date: 12/03/24 Purpose of session/treatment goals addressed:: Purpose of session was to review tx progress, discuss goal for continued tx, and address tx plan goal #2 obj #1 & 2 Eye Contact:: Good Motor Activity:: Appropriate Appearance:: Casual Speech:: Appropriate Mood:: Anxious Affect:: Congruent Thoughts:: Linear, Logical and No evidence of hallucinations/delusions noted Staff Interventions:: thought challenging, motivational interviewing, CBT techniques and goal setting Client Response:: Pt receptive of session, engaged throughout. Reports that he has been feeling ?good? lately and has been working on lowering his expectations of self. Shared that in the past he has put pressure on himself to be ?perfect? and if he did not feel he would be able to then he did not try at all. Noted that the pressure to be perfect or do ?something meaningful? impacted his life in all areas, including playing or writing music and playing video games with others. Shared this resulted in less enjoyment in his hobbies and interests. Noted that recently however her has been able to challenge the fear of failure and allow himself to enjoy playing video games with friends without worrying he will be the reason they fail. Went on to describe trying to apply this to other areas of his life and has made plans to visit with his daughter?s grandmother on Sunday to begin working towards rekindling the relationship he has with his daughter. Did indicate ongoing avoidance in reaching out to his former employer. Shared that he has been thought challenging the guilt and shame associated with this, however, continues to struggle with follow-through. Pt expressed uncertainty as to whether he actually wants to return to this job. Noted that since becoming an adult he has not really thought about what he actually enjoys and wants to do and instead has only focused on doing what he felt he was ?supposed to do?. Noted a desire to play music live but feels to anxious about doing so. Discussed plans to look into music lessons as a means of engaging in his hobbies in a new way that will also get him out of the house, while continuing to think about what he wants to do for employment. Risks/Concerns:: None noted. Pt denies SI, plan, or intent. Future oriented Progress Toward Goals/Plan:: Progress noted. Pt has seen progress in improve mood and increased self-care. Pt noted that he has been actively working on increasing use of self-compassion and challenging unrealistic or unfair expectations of himself. Pt noted additionally making increased efforts to communicate with his supports about his mental health, as well as spending more quality time with them. Pt shared that he continues to struggle with guilt and shame but is actively working on this. Ongoing anxiety and distraction as avoidance impacting follow-through in various areas of his life as well. Recommended continued IOP tx to improve mood stability, continue to promote behavior activation skills, and prevent decompensation. Time Stopped:: 12:19
--- NOTE | 2024-12-03 15:00 | BH.SGPN.GN ---
Behaviors/Verbalizations/Mental Status: [] Eye contact is good. Motor activity is appropriate. Appearance is casual. Speech is Appropriate. Mood is anxious and content. Affect is congruent. Thoughts are linear and logical. No evidence of psychosis Client Response/Progress/Benefit: [] Pt responded well to session AEB contributing to small group discussion, taking notes, and listening attentively to others. Group defined anger and discussed the benefits of managed anger and anger as a secondary emotion. Group shared perspective on benefits of anger as advocating for self and getting needs met, as well as a catalyst for change. Pt engaged in group discussion on common underlying emotions that mask as anger. Identified feeling used or overwhelmed as a common secondary emotion to anger. Appeared to benefit from increased knowledge of the anger cycle as well as personal triggers. Will continue IOP to increase healthy coping, prevent decompensation, and improve functioning. Narrative Note: []
--- NOTE | 2024-12-04 09:02 | BH.SGPN.GN ---
Behaviors/Verbalizations/Mental Status: []Pt alert and oriented, casually dressed and groomed. Eye contact good. Motor activity appropriate. Speech within normal limits. Affect congruent, mood content. Thoughts linear, logical, no signs of hallucinations or delusions. Reviewed pt?s symptom tracker, no risk for suicidal ideation, plan, or intent 12/04/24 Client Response/Progress/Benefit: []Pt was an active participant in group discussions. Attentive. Able to identify mental health wins including being able to more intentionally connect with his family. Described making an effort to sit down and watch a movie with his mother recently which was outside of his norm. Additional win noted as making progress in his ability to willingly complete tasks around the home. Stressor noted as continuing to struggle with following-through on a goal to reach out to his previous employer. Progress noted. Benefited from group support, encouragement, and feedback. Will continue in IOP to prevent decompensation, continue to gain healthy coping skills, and reduce negative thinking patterns. Narrative Note: []
--- NOTE | 2024-12-04 10:15 | BH.SGPN.GN ---
Behaviors/Verbalizations/Mental Status: []Eye contact is fair. Motor activity is appropriate. Appearance is casual. Speech is Appropriate. Mood is content. Affect is congruent. Thoughts are linear and logical. No evidence of psychosis Client Response/Progress/Benefit: [] Pt engaged in session AEB listening attentively to others and providing input throughout. Pt engaged in activity, able to connect how it can be uncomfortable and difficult to accept when things are out of one?s own control. Worked with peer group to identify things in life which are hard to accept and identified personal things that are hard to accept including his relationship with his daughter and legal issues. Seemed to benefit from increased awareness of the meaning as well as the importance of acceptance. Pt also worked on what acceptance is vs is not for own personal example. Will continue in IOP to promote use of healthy coping skills, reduce isolation, and increase self-compassion. Narrative Note: []
--- NOTE | 2024-12-04 11:10 | BH.SGPN.GN ---
Behaviors/Verbalizations/Mental Status: [] Pt alert and oriented, casually dressed and groomed. Eye contact fair. Motor activity is appropriate. Speech within normal limits. Affect congruent, mood anxious. Thoughts linear, logical, no signs of hallucinations or delusions. Client Response/Progress/Benefit: [] Pt was attentive and engaged participating in discussion on acceptance and the mental health benefits of practicing acceptance. Pt and peers identified what makes acceptance challenging and pt completed a self-reflection exercise on what is hard to accept in pt's life. Pt identified things that are hard to accept. Pt identified an acceptance skill of supportive network is vicente to practice Pt appeared to benefit from gaining insight and learning strategies to increase acceptance. Will continue in IOP to prevent decompensation, increase healthy coping, and improve functioning to return to work. Narrative Note: []
--- NOTE | 2024-12-08 09:05 | BH.SGPN.GN ---
Behaviors/Verbalizations/Mental Status: [] Eye contact is good. Motor activity is appropriate. Appearance is casual. Speech is Appropriate. Mood is depressed. Affect is congruent. Thoughts are linear and logical. No evidence of psychosis. Reviewed daily check in sheet and no reports of suicidal ideations or intent. Client Response/Progress/Benefit: [] Pt participated at times during the group discussions. Attentive. Daily symptom tracker notes 11/16 for depression and anxiety. Reports isolative behaviors from Sunday through Sunday. Believes that trigger was related to not feeling well and poor sleep. Long-standing isolative episodes which can last several months. He is proud of himself for utilizing skills to decrease the length of this episode. He also reached out to others that he had appointments with (IOP, family) to cancel rather than completely ignore them. Also reports insight that he caffeine intake is very high and impacting his sleep schedule. Reports to consuming close to 600mg of caffeine daily. Group discussion on how this can impact mental health and sleep. Limited progress noted mainly related to insight. Benefited from group support, encouragement, and feedback. Will continue in IOP to prevent decompensation, increase healthy coping, and improve functioing to return to work. Narrative Note: []
--- NOTE | 2024-12-08 10:10 | BH.SGPN.GN ---
Behaviors/Verbalizations/Mental Status: []Client alert and oriented, casually dressed and groomed. Eye contact good. Motor activity appropriate. Speech within normal limits. Affect congruent, mood anxious and content. Thoughts linear, logical, no signs of hallucinations or delusions. Client Response/Progress/Benefit: [] Pt was an attentive and active participant, AEB taking notes and providing input in group discussion. Attentive during psychoeducation. Pt engaged during interactive discussion in which the group defined self-care and discussed its benefits. Group discussed barriers to engaging in self-care. Group members together came up with guilt, time, ?people pleasing?, not knowing what to do, and perception that its unproductive as barriers to engage in self-care. Pt identified personal barrier as ?forgetting? and low motivation. Pt participated in small groups where they worked to identify and challenged common self-care ?myths?. Benefited from increased awareness of self-care, its benefits, and the consequences of not utilizing self-care strategies. Will continue IOP tx to improve mood stability, promote use of healthy coping skills, and prevent decompensation. Narrative Note: []
--- NOTE | 2024-12-08 11:10 | BH.SGPN.GN ---
Behaviors/Verbalizations/Mental Status: []Client alert and oriented, casually dressed and groomed. Eye contact good. Motor activity appropriate. Speech within normal limits. Affect congruent, mood anxious. Thoughts linear, logical, no signs of hallucinations or delusions. Client Response/Progress/Benefit: [] Pt taking notes during discussion reviewing different areas of self-care and completing self-assessment of current self-care, as well as providing input throughout discussion. Did well to complete self-care self-assessment worksheet. Pt identified how pt is doing in each category and what self-care activities pt wants to start using. Pt selected professional self-care to begin practicing more consistently. Pt plans to do this by advocating for himself with his boss. Appeared to benefit from completing the self-care evaluation and gaining insights into current self-care practices, as well as identifying areas in which pt would like to improve upon. Pt will continue IOP tx to promote use of healthy coping skills, reduce negative thinking patterns, and increase self-confidence. Narrative Note: []
--- NOTE | 2024-12-12 09:05 | BH.SGPN.GN ---
Behaviors/Verbalizations/Mental Status: [] Eye contact is good. Motor activity is appropriate. Appearance is casual. Speech is Appropriate. Mood is anxious. Affect is congruent. Thoughts are linear and logical. No evidence of psychosis. Reviewed daily check in sheet and no reports of suicidal ideations or intent. Client Response/Progress/Benefit: [] Pt was an active participant in group discussion. Attentive. Daily symptom tracker notes / for anxiety. He reports mental health win as attending IOP today rather than avoiding. He continues to report illness or situational events which keep him from following through with daily responsibilities, however has been able to decrease the intensity of avoidance and isolation. Also reports improved communication with his support which has led to stronger relationships. Allowing himself to be more vulnerable. Reports feeling less like a burden. Progress noted. Benefited from group support, encouragement, and feedback. Will continue in IOP to prevent decmpensation, stablize mood, and improve functioning. Narrative Note: []
--- NOTE | 2024-12-12 10:05 | BH.SGPN.GN ---
Behaviors/Verbalizations/Mental Status: [] Eye contact is good. Motor activity is appropriate. Appearance is casual. Speech is Appropriate. Mood is content. Affect is congruent. Thoughts are linear and logical. No evidence of psychosis. Client Response/Progress/Benefit: [] Pt engaged participant AEB listening to others, engaging in activity, and providing feedback throughout. Attentive during psychoeducation and provided insight into obstacles that impede mental wellness. Pt chose shared with group current mental health reality and desired mental health reality, noting she would like to feel more present and pursue a relationship with his daughter. Attentive to others that shared. Identified barriers to desired reality include: isolation, negative self-talk, and avoidance. Benefited from taking look at current mental health state and obstacles for progress. Pt to continue IOP tx to improve coping repertoire, challenge negative self-talk, and prevent decompensation. Narrative Note: []
--- NOTE | 2024-12-12 11:05 | BH.SGPN.GN ---
Behaviors/Verbalizations/Mental Status: [] Eye contact is good. Motor activity is appropriate. Appearance is casual. Speech is Appropriate. Mood is dysthymic and anxious. Affect is congruent. Thoughts are linear and logical. No evidence of psychosis Client Response/Progress/Benefit: [] Pt was engaged at times during group discussions and was attentive during group activity. Worked with peers to identify strategies to help overcome barriers and obstacles to desired reality. Group worked together to develop strategies for the common barriers. Identified personal barriers to desired reality and chose one obstacle to work. Pt stated pt wants to work on isolation and identified a strategy to change of scenery. Pt seemed to benefit from increased knowledge of practical strategies to overcome common barriers to moving forward. Will continue in IOP to prevent decompensation, increase healthy coping, and improve functioning. Narrative Note: []
== END 2024-12-12 23:59 ==
LOC: BHIOP 07:08
PROVIDERS: Referring Provider Psychiatry & Neurology Psychiatry; Visit Provider Psychiatry & Neurology Psychiatry
DX: F33.1 Major depressive disorder, recurrent, moderate (principal); F41.1 Generalized anxiety disorder; F10.91 Alcohol use, unspecified, in remission
CPT/HCPCS: H2012; H2020; S9480; 90837

== ENCOUNTER → 2024-12-12 | Outpatient (CLI) | payer MEDICAID, SELFPAY ==
[2024-12-12 14:27] LABS: ALB/GLOB Ratio 1.4 RATIO (0.9-2.4); AST(SGOT) 28 U/L (15-37); Alanine Aminotransfer ALT/SGPT 55 U/L (16-61); Albumin, Serum 4.6 g/dL (3.2-5.0); Alkaline Phosphatase 54 U/L (45-117); Anion Gap 7 (5-15); BUN 8 mg/dL (7-18); BUN/Creat Ratio 10.2 RATIO (10-20); Calcium,Total 9.2 mg/dL (8.5-10.1); Chloride 106 mmol/L (98-107); Creatinine, Serum 0.78 mg/dL (0.70-1.30); EST Glomerular Filtration Rate 121 mL/min (>60); Est Glom Filt Rate - Afr Amer 146 mL/min (>60); Globulin 3.3 g/dL (2.2-4.2); Glucose 98 mg/dL (74-106); Potassium 3.7 mmol/L (3.5-5.1); Protein, Total 7.9 g/dL (6.4-8.2); Sodium Level 140 mmol/L (136-145); Thyroid Stim Hormone (TSH) 0.993 uIU/mL (0.358-3.740)
[2024-12-13 10:40] LABS: Vitamin D,25 Hydroxy 7.2 ng/mL
== END | disposition home or self-care (01) ==
PROVIDERS: Referring Provider Psychiatry & Neurology Psychiatry; Visit Provider Psychiatry & Neurology Psychiatry
DX: E55.9 Vitamin D deficiency, unspecified (principal)
CPT/HCPCS: 36415; 80053; 82306; 84443

== ENCOUNTER 2024-12-15 11:20 | Outpatient (RCR) | payer MEDICAID, SELFPAY ==
[2024-12-13 02:00] VITALS: BP 126/69; PULSE 75
--- NOTE | 2024-12-15 09:00 | BH.SGPN.GN ---
Behaviors/Verbalizations/Mental Status: [] Client alert and oriented, casual appearance. Eye contact good. Motor activity appropriate. Speech within normal limits. Affect congruent, mood euthymic and positive. Thoughts linear, logical, no signs of hallucinations or delusions. Reviewed client's symptom tracker, no risk for suicidal ideation, plan, or intent. Client Response/Progress/Benefit: []Client responded well to session AEB listening to others and sharing thoughts/feelings. Per daily symptom tracker client reports a 0/5, with 5 being severe, for depressed mood and a 0/5 for anxiety. Client shared mental positive as choosing a playing video games late last night because one of his friends was online that he has not played with for a long time. Client said he usually when he changes his schedule or routine it makes it hard to get back on routine the next day just prior to himself or being able to make the IOP today on time. Client stated additional mental positive that as being more productive around the house independently. Client stated he does not often have trouble helping around the house when others ask him but recently he has been just noticing that things seem to get done and doing it without being asked. Client noted improvement with his mood when he is helpful and gets the task completed. Client noted current stressor as having to figure out his insurance because it is coming back as not eligible currently. Client reported he just knows he needs to make a phone call but gets anxious with phone calls. Stated his emotion today is happy. Appeared to benefit from support from peers. Will continue IOP tx to consistently utilize healthy coping skills, challenge distortions, and prevent decompensation.
--- NOTE | 2024-12-15 10:10 | BH.SGPN.GN ---
Behaviors/Verbalizations/Mental Status: [] Eye contact is good. Motor activity is appropriate. Appearance is casual. Speech is Appropriate. Mood is dysthymic. Affect is congruent. Thoughts are linear and logical. No evidence of psychosis. Client Response/Progress/Benefit: [] Pt participated at times during group discussion. Engaged in group activity and attentive during psychoeducation. Along with peers, pt was able to identify barriers to taking action in their life. Identified several symptoms and stressors that pt feels are holding them back from progress such as fear of success and fear of judgement. Stated these things have kept pt from attempting new things stating I wouldn't be so scared to try new things. Benefited from increased self-awareness of obstacles. Will continue IOP tx to prevent decompensation, further stabilize mood, and improve functioning to return to work. Narrative Note: []
--- NOTE | 2024-12-15 11:15 | BH.SGPN.GN ---
Behaviors/Verbalizations/Mental Status: []Pt alert and oriented, casually dressed and groomed. Eye contact good. Motor activity appropriate. Speech within normal limits. Affect congruent, mood anxious. Thoughts linear, logical, no signs of hallucinations or delusions. Client Response/Progress/Benefit: [] Pt responded well to session, taking notes and participating in worksheet discussion. Pt connected with the discussion on motion vs action steps, and this helped pt learn how to set goals differently. Pt set a goal to work on improving communication with his daughter. Pt identified motion steps including reminding himself of the benefits and redefine what ?realistic expectations? look like. Pt stated what will help take action is starting small and habit stack with reaching out after IOP group each week. Appeared to benefit from identifying a small goal to benefit mental health. Pt is to continue IOP tx to promote use of healthy coping skills, challenge distortions, and prevent decompensation. Narrative Note: []
--- NOTE | 2024-12-17 09:00 | BH.SGPN.GN ---
Behaviors/Verbalizations/Mental Status: []? Eye contact is good. Motor activity is appropriate. Appearance is casual. Speech is Appropriate. Mood is content. Affect is congruent. Thoughts are linear and logical. No evidence of psychosis. Reviewed daily check in sheet and no reports of suicidal ideations or intent? Client Response/Progress/Benefit: []? Pt engaged throughout, providing supportive feedback. Did well to identify mental health wins, which included coming to group today after not doing much yesterday. noted that in the past he would let a low energy day turn into a pattern of days. Additional win noted as challenging himself to put on music, as well as engage in self-compassion to prevent from beating himself up for his down days. Reports that he felt better afterwards. Stressor noted as feeling anxious about a phone call he received regarding missed child support. Progress noted. Benefited from group support and encouragement. Recommended continued IOP tx to maintain mood stability, increase confidence, and prevent decompensation. Narrative Note: []
--- NOTE | 2024-12-17 10:10 | BH.SGPN.GN ---
Behaviors/Verbalizations/Mental Status: []Eye contact is good. Motor activity is appropriate. Appearance is casual. Speech is Appropriate. Mood is calm. Affect is congruent. Thoughts are linear and logical. No evidence of psychosis. Client Response/Progress/Benefit: []Pt was an active participant in group discussion. Engaged and attentive during psychoeducation and interactive discussion on coping skills, why people use unhealthy coping skills, how to replace unhealthy coping skills, and internal vs external coping skills. Attentive as peers came up with list of unhealthy coping skills. Pt reported personally, pt has used substances to cope and this led to pt having consequences and loss of relationships. Group discussed the effects of maladaptive coping skills on mental health. Benefited from increased understanding of unhealthy coping skills and the need for developing healthy internal and external coping skills. Actively participated during experiential group activity and was able to related this activity to group topic. Will continue in IOP to promote use of healthy coping skills, reduce avoidance, and improve self-confidence. Narrative Note: []
--- NOTE | 2024-12-18 09:21 | BH.MDN_ITS ---
Multi-Disciplinary Note Note 60-min Individual: Time Started:: 11:17 Date: 12/17/24 Purpose of session/treatment goals addressed:: Purpose of session was to address treatment plan goal #1 objectives #1 & #2. Another goal was to discuss upcoming discharge. Eye Contact:: Good Motor Activity:: Appropriate Appearance:: Neat and Casual Speech:: Appropriate Mood:: Euthymic Affect:: Congruent Thoughts:: Linear, Logical and No evidence of hallucinations/delusions noted Staff Interventions:: thought challenging, motivational interviewing, CBT techniques, discharge planning, strengths perspective and goal setting Client Response:: Pt receptive of session, engaged throughout. Shared that overall he continues to feel more content and motivated to continue to work on his mental health. Described struggling with accomplishing a lot on Sunday and t hen very little yesterday. Reports that in the past he would have been self- critical for having an unproductive day and felt guilt for it. Shared that he was able instead to take a self-compassionate approach and reflect upon what contributed to having less energy and motivation yesterday. Insight that he is still adjusting to the improvement in his mental health state and therefore may overdone it on Sunday, resulting in burnout and fatigue yesterday. Reflected on a need for more structure and routine in his day to day, as well as something he feels responsible for. Discussed considering getting chickens as it has been something he had been contemplating previously. Noted, however, that he would like to prove to himself he cam consistently adhere to a smaller responsibility first. Identified potentially caring for a fish or plant first. Went on to discuss a desire to implement more consistent activity in his daily life as well, reflecting that the last time he had felt consistently stable was 5 years ago and at that time he was walking daily, eating healthier, and regularly spending time with his daughter. Continues to report struggling with shame and fear of failure or being a disappointment when it comes to reuniting with his daughter. Insight that the longer he puts reaching back out off, the harder it will be to do. Expressed not wanting to miss out on important moments in her life and would regret it later if he never reconnected with her. Pt Noted wanting to get consistent with a routine and sit down with his daughter?s mother to discuss this prior to reaching out. Reports a goal of getting on consistent sleep/wake schedule, start with implementing a regular morning routine, and begin walking daily. Risks/Concerns:: None noted. Pt denies any SI, plan, or intent as of this date 12/18/24. Progress Toward Goals/Plan:: Progress noted. Pt reports improved mood and motivation. Described more actively being able to catch distorted thoughts reinforcing depression and anxiety and respond with self-compassion and thought challenging instead. Pt noted that he feels his anxiety is no longer impeding him from being able to function at baseline and pt feels ready to begin taking on more personal responsibilities in his life rather than continue to avoid. Pt is consistent and engaged in both individual and group sessions. Reports increased communication with familial supports, as well as reaching out to friends. Does continue to struggle at times with becoming easily distracted wh ich then impedes his ability to consistently accomplish goals or tend to responsibilities. Recommended continued IOP tx to maintain mood stability, complete aftercare planning, and prevent decompensation. Time Stopped:: 12:07
--- NOTE | 2024-12-19 09:00 | BH.SGPN.GN ---
Behaviors/Verbalizations/Mental Status: [] Eye contact is good. Motor activity is appropriate. Appearance is casual. Speech is Appropriate. Mood is euthymic. Affect is full. Thoughts are linear and logical. No evidence of psychosis. Reviewed daily check in sheet and no reports of suicidal ideations or intent Client Response/Progress/Benefit: [] Pt was an active participant in group discussion. Attentive. Emotion for today is content. Daily symptom tracker has not significant distress. Pt continues to consistently utilize healthy skills. Reports being more independent and is completing tasks rather than avoiding. Increase communication with support which has improved relationships, his self-esteem, and concerns about being judged. Stressors include financial strain as he remains unemployed. Has not reached out to employer to discuss returning to job. Progress noted. Benefited from group support, encouragement, and feedback. Will continue in IOP to prevent decompensation, stabilize mood, and improve functioning. Narrative Note: []
--- NOTE | 2024-12-19 10:15 | BH.SGPN.GN ---
Behaviors/Verbalizations/Mental Status: [] Eye contact is good. Motor activity is appropriate. Appearance is casual. Speech is Appropriate. Mood is euthymic. Affect is full. Thoughts are linear and logical. No evidence of psychosis Client Response/Progress/Benefit: [] Pt receptive to session AEB listening attentively to others and taking notes. Pt attentive and contributed throughout psychoeducation on the cognitive triangle and maintenance cycles. Pt engaged during group discussion reviewing the impact of daily activities and behaviors in either reinforcing unhealthy maintenance cycles and depression or assisting in reducing symptoms (?down? vs ?up? activities). Pt participated during interactive discussion in which pt identified common up activities (dance, playing music, taking care of pets, laughing, and fresh air) and down activities (substances, doom scrolling, dissociating, and isolating). Appeared to benefit from increased awareness of current behaviors and impact these have on mental health. Will continue IOP to increase healthy coping, prevent decompensation, and increase healthy coping. Narrative Note: []
--- NOTE | 2024-12-19 11:10 | BH.SGPN.GN ---
Behaviors/Verbalizations/Mental Status: []Pt alert and oriented, neatly dressed and groomed. Eye contact good. Motor activity appropriate. Speech within normal limits. Affect congruent, mood euthymic. Thoughts linear, logical, no signs of hallucinations or delusions. Client Response/Progress/Benefit: [] Pt responded well to session, attentive and engaged in group discussions and activity. Actively engaged in continued discussion about up activities and down activities. Active participant as group discussed values and the benefits that knowing one's values can have on one's mental health. Pt completed worksheet on values and set a goal to get back into physical wellness by walking down his road every day ?knowing that will have positive snowball effect.? Benefited from increased awareness of their personal values and how incorporating their values into behavioral activation goals can positive impact mental health. Will continue in IOP to improve healthy coping skills, decrease distortions, and reduce avoidance. Narrative Note: []
--- NOTE | 2024-12-22 09:00 | BH.SGPN.GN ---
Behaviors/Verbalizations/Mental Status: [] Eye contact is good. Motor activity is appropriate. Appearance is casual. Speech is Appropriate. Mood is euthymic. Affect is full. Thoughts are linear and logical. No evidence of psychosis. Reviewed daily check in sheet and no reports of suicidal ideations or intent. Client Response/Progress/Benefit: [] Pt was an active participant in group discussions. Attentive. Daily symptom tracker notes no significant distress. Reports stable mood over the weekend. Continues to be engaged and not isolating. Starting to make daily changes in his routine and incorporating healthy habits. Shared that he has a goals to read everyday. Listed several mental health benefits to reading which prompted further discussion from the group. Emotion for today is happy. He mentioned that he has to make some calls related to life stuff which he has been avoiding. Appears this is related to attempts to return to his job. Benefited from group support, encouragement, and feedback. Will continue in IOP to prevent decompensation, increase healthy coping, and improve functioning. Narrative Note: []
--- NOTE | 2024-12-22 10:10 | BH.SGPN.GN ---
Behaviors/Verbalizations/Mental Status: []Eye contact is good. Alert and oriented. Motor activity is appropriate. Appearance is casual. grooming is appropriate. Speech is Appropriate. Mood is content. Affect is congruent. Thoughts are linear and logical. No evidence of psychosis or hallucinations. Client Response/Progress/Benefit: [] Pt was an active participate AEB listening attentively to others and contributing during group discussions, participating in activity, and taking notes throughout. Attentive and provided input as the group identified ways we can hurt others or sabotage self by not regulating our emotions. Participated with peers to identify ways emotions impact communication. Provided an example of shutting down and avoiding communication when anxiety is unmanaged. Participated during group activity. Pt benefited from session by gaining an increased understanding on the importance of managing emotions to improve daily functioning. Will continue IOP tx to promote use of healthy coping skills, reduce negative thinking patterns, and improve mood stability. ? Narrative Note: []
--- NOTE | 2024-12-22 11:05 | BH.SGPN.GN ---
Behaviors/Verbalizations/Mental Status: []Pt alert and oriented, casually dressed and appropriately groomed. Eye contact good. Motor activity appropriate. Speech within normal limits. Affect congruent, mood euthymic. Thoughts linear, logical, no signs of hallucinations or delusions. Client Response/Progress/Benefit: [] Pt engaged in session AEB Pt listening attentively to peers and providing input. Attentive during psychoeducation on 4 zones of regulation. Pt able to identify feelings and behaviors for each zone. Pt identified coping skills one can use to support self in each zone. Pt reported feeling in the yellow and green zones today because pt feels ?engaged and kinder to myself.? Pt stated coping skills pt wants to practice in each zone include: goal setting, positive self-talk, and opposite action. Pt reported he can benefit from following up on his ?to do list? today and practicing self-compassion. Benefited from increased education on zones of regulation or stages of alertness for emotions and healthy coping skills to use for each zone. Will continue IOP tx to improve daily functioning, reduce negative self-talk, and reinforce healthy coping skills. Narrative Note: []
--- NOTE | 2024-12-24 09:00 | BH.SGPN.GN ---
Behaviors/Verbalizations/Mental Status: []Pt alert and oriented, neatly dressed and groomed. Eye contact good. Motor activity appropriate. Speech within normal limits. Affect congruent. mood confident. Thoughts linear, logical, no signs of hallucinations or delusions. Reviewed pt?s symptom tracker, no risk for suicidal ideation, plan, or intent 12/24/24 Client Response/Progress/Benefit: []Pt was an active participant in group discussions. Attentive. Able to identify mental health wins including allowing himself to rest when he was sick without being self-critical and consistently applying coping skills. Pt's stressor today is he is both anxious and ready to discharge from IOP. Pt shared he is worried about what is next, but he is reminding himself of his skills. Pt stated he is feeling content this morning and stated he is proud of the progress he has made while in IOP. Pt receptive to feedback from peers which pt reported was helpful. Progress noted. Benefited from group support, encouragement, and feedback. Will continue in IOP to reinforce healthy coping skills, improve daily functioning, and establish aftercare. Narrative Note: []
--- NOTE | 2024-12-24 10:10 | BH.SGPN.GN ---
Behaviors/Verbalizations/Mental Status: []Pt alert and oriented, casually dressed and groomed. Eye contact good. Motor activity appropriate. Speech within normal limits. Affect congruent, mood content. Thoughts linear, logical, no signs of hallucinations or delusions. Client Response/Progress/Benefit: [] Pt took notes and contributed to group discussions. Attentive during psychoeducation on growth mindset. Participated during the activity. Interactive group discussion on growth mindset in which group verbalized their current fixed mindsets and how they affect their mental health. Pt shared common fixed mindset thoughts they have. These thoughts lead to feeling and staying stuck, not reaching out to others, and self-criticism. Pt stated they have personally struggled with fixed thoughts causing them to avoid out of guilt. Pt benefited from increased awareness of growth mindset and fixed thoughts and how fixed thoughts impact their mental health. Will continue IOP tx to prevent decompensation, improve daily functioning, and promote mood stability. Narrative Note: []
--- NOTE | 2024-12-24 11:10 | BH.SGPN.GN ---
Behaviors/Verbalizations/Mental Status: []Pt alert and oriented, casual dressed and groomed. Eye contact good. Motor activity appropriate. Speech within normal limits. Affect congruent, mood anxious. Thoughts linear, logical, no signs of hallucinations or delusions. Client Response/Progress/Benefit: []Pt was an active participant during activity and discussion. Pt did well to remain attentive and participate as group worked on identifying characteristics and benefits of adopting a growth mindset. Worked with fellow participants in reframing the example fixed thoughts into growth mindset thoughts. Pt worked on changing own fixed thought and reframed the thought. Pt also wants to work on learning well over learning quick. Pt appeared to benefit from challenging own thoughts and engaging in the activity. Pt will continue IOP tx to reinforce healthy coping skills, decrease anxious avoidance, and prevent decompensation.
--- NOTE | 2024-12-24 12:00 | PCM.BH.PN_ITS ---
Progress Note Progress Note: History of Present Illness/Interim History: The patient is a 34-year-old single male with a history of depression and alcohol abuse (sober x 1 year) who is seen in follow-up at the [facility]. I last saw the patient 1 month ago and at that time his Zoloft was increased to 50 mg daily. He has tolerated this increase in dose well with no side effects. He states that he is doing much better and has much less anxiety than before. According to the staff he has been consistent in his attendance and engaged in the program and is making progress. He obtained his labs and the only abnormal lab was a low vitamin D. The patient feels vastly improved and is now frustra cris with the fact that he is not working and is currently looking for a job. He denies any alcohol or drug use. He denies any depression. He denies passive thoughts of , suicidal ideation, plan for suicide, homicidal ideation, hallucinations or delusions or panic attacks. Current Psychiatric Medications: [] Zoloft 50 mg p.o. daily (dose increased 1 month ago). Mental Status Examination: [] The patient is a 34-year-old slender male who appears normal for stated age and is ambulatory with a normal gait. He is cooperative during the interview and has no psychomotor agitation or retardation. Eye contact is good and speech is normal rate and rhythm and fluent with no pressure. Mood is euthymic. Affect is full and normal. Thought process is goal-directed and organized. Thought content: The patient is looking forward to looking for a job. There is no evidence of passive thoughts of , suicidal ideation, plan for suicide, homicidal ideation, hallucinations or delusions. Reality testing is intact. Judgment is intact. Insight is fair to good. Impulsivity is moderate. Diagnoses: [] 1. Major depressive disorder in full remission 2. Generalized anxiety disorder 3. Alcohol use disorder in full remission for 1 year 4. Primary support, legal and work issues Plan: [] The patient will be discharged in 2 days from the [facility] as he has benefited greatly from the program. He felt safe during the interview and if it anytime he does not feel safe he agrees to let us know or go to the emergency room. His Zoloft prescription was refilled and he is also given a prescription for vitamin D2 50,000 units once a week for 3 months. He will be discharged soon from the [facility] and plans on doing the aftercare program. He will continue to follow-up with his outpatient providers.
--- NOTE | 2024-12-26 09:00 | BH.SGPN.GN ---
Behaviors/Verbalizations/Mental Status: [] Eye contact is good. Motor activity is appropriate. Appearance is casual. Speech is Appropriate. Mood is anxious and euthymic. Affect is congruent. Thoughts are linear and logical. No evidence of psychosis. Reviewed daily check in sheet and no reports of suicidal ideations or intent. Client Response/Progress/Benefit: [] Pt was an active participant in group discussion. Attentive. Daily symptom tracker notes 0/5 for depression, 1/5 for anxiety, and 0/5 for agitation which indicates continued progress for pt. Shared with the group mental health wins including getting out of the house more consistently and doing active things throughout the day rather than isolating and laying in bed. Additional win noted as bringing his guitar to play for his last day, as he has been avoiding playing in front of a crowd since becoming sober. Pt reports initial thoughts of pretending like he forgot his guitar to prevent having to do so, but is glad he used opposite action and brought it to group. Noted this as empowering. Reflected on several areas of progress since IOP tx. Pt reports current stressor as his mom noting that she had something she needed to talk to him about and fears this is medical related. Receptive of supportive feedback from group. Progress noted. Benefited from group support, encouragement, and feedback. Will d/c from [facility] today and continue in outpatient counseling to prevent decompensation, promote healthy coping, and maintain mood stability. Narrative Note: []
--- NOTE | 2024-12-26 10:10 | BH.SGPN.GN ---
Behaviors/Verbalizations/Mental Status: []Pt alert and oriented, casually dressed and groomed. Eye contact good. Motor activity appropriate. Speech within normal limits. Affect congruent, mood anxious and euthymic. Thoughts linear, logical, no signs of hallucinations or delusions. Client Response/Progress/Benefit: [] Pt participated during small group discussions. Attentive during psychoeducation about defense mechanisms. Showed engagement during small group discussions and helped group identify which defense mechanisms were maladaptive, adaptive, or ?somewhere in the garza.? Pt worked with small group on identifying how each defense mechanism can impact mental health and gave examples. ?Seemed to benefit from gaining awareness about the different defense mechanisms. Pt to discharge from IOP tx as pt has accomplished his tx goals and no longer meets criteria for IOP level of care. Narrative Note: []
--- NOTE | 2024-12-26 14:24 | BH.DS ---
Discharge Summary Demographics Date of Admission:: 10/28/24 Discharge Date: 12/26/24 Presenting Problems at Admission:: Pt is a 34 year-old male with a history of major depressive disorder, anxiety, PTSD, and substance use issues, sober 1 year. Pt was referred to 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 At admission, pt endorses a depressed mood, excessive guilt, passive SI, lack of energy, lack of motivation, feeling like a burden, and anhedonia. Pt also reports anxiety, restlessness, and isolation. Discharge Diagnoses:: 1. Major depressive disorder in full remission 2. Generalized anxiety disorder 3. Alcohol use disorder in full remission for 1 year 4. Primary support, legal and work issues Reason for Discharge:: Pt has accomplished his tx goals AEB his reduction of DMS-5 symptoms and self-report of improved functioning and mood. Pt no longer meets criteria for [facility] level of care and will discharge to outpatient counseling and [facility] aftercare group. Treatment Progress During Treatment & Response: Pt has responded well to treatment as evidenced by Pt consistently attending IOP sessions and his reduction of DSM-5 scores since admission. Pt was initially more reserved when beginning IOP tx and by discharge he was very engaged, participated in all sessions, and actively provided feedback to fellow participants. Pt applied coping skills outside of IOP and reports overall his mood is improved and he is functioning better than he was several months ago. Pt?s overall symptom reduction is 67% since admission with anxiety decreasing by 80%, depression decreasing by 83%, and symptoms of irritability decreasing by 100%. Pt has increased his ability to manage stressors without avoidance, talk about difficult things, practice self-compassion, and be vulnerable. Pt will follow up with [facility] for ongoing therapy and medication management. Issues Still to be Addressed:: Consistent skill application and follow-through on identified goals, ongoing self-compassion and self-forgiveness work, continued communication with supports. Pt can also benefit from further decreasing anxiety and pt would like to reconnect with his daughter. Discharge Recommendations/Instructions:: Consistent skill application and follow-through on identified goals, ongoing self-compassion and self-forgiveness work, continued communication with supports. Pt can also benefit from further decreasing anxiety and pt would like to reconnect with his daughter. Discharge Handout
--- NOTE | 2024-12-26 14:37 | BH.AFTERPLAN ---
Aftercare Plan Demographics Treatment End Date:: 12/26/24 Psychiatrist:: Shelia Dunn Psychiatrist Office #:: [phone] [facility] Therapist:: Lacy Juarez Therapist Phone #:: [phone] Medications Home Medications ergocalciferol (vitamin D2) 1,250 mcg (50,000 unit) capsule (Vitamin D2) 1,250 mcg PO QWEEK 30 days #5 caps 12/24/24 sertraline 50 mg tablet (Zoloft) 50 mg PO DAILY 30 days #30 tabs 12/24/24 Plan Details Progress/Aftercare Plan Details:: Pt has responded well to treatment as evidenced by Pt consistently attending IOP sessions and his reduction of DSM-5 scores since admission. Pt was initially more reserved when beginning IOP tx and by discharge he was very engaged, participated in all sessions, and actively provided feedback to fellow participants. Pt applied coping skills outside of IOP and reports overall his mood is improved and he is functioning better than he was several months ago. Pt?s overall symptom reduction is 67% since admission with anxiety decreasing by 80%, depression decreasing by 83%, and symptoms of irritability decreasing by 100%. Pt has increased his ability to manage stressors without avoidance, talk about difficult things, practice self-compassion, and be vulnerable. Pt will follow up with [facility] for ongoing therapy and medication management. Strategies for Success:: Opposite Action!!! ? do what will help you, even when your brain is saying ?This won?t work? or ?I can?t do it?, even when it feels uncomfortable, even when you are tempted to give up or fall back into unhealthy behaviors. Doing the hard, uncomfortable, or anxious thing is not always fun, but it is usually worth it. Regularly check-in with yourself and ask yourself how you are really doing. Do you recognize any of your warning signs? Are you going to be faced with a potential trigger soon? If you notice you are struggling, slow down, take a step back, and ask yourself what you need! Try engaging in a relaxing activity such as listening to music, writing, taking a walk, stepping away for a minute, or deep breathing. Remember, you are in control of your responses to external stressors! You just have to believe in your own ability to work through those difficult or triggering moments. Challenge negative and unhelpful or unkind thought patterns by trying to look at things from another perspective. Remember ?thoughts are thoughts, not facts?. Ask yourself ?How else can I think about this??, ?Do I have to give this thought value??, ?Is there evidence against this thought?, What would I say to someone else??, ?What would my supports say to me if I told them how I was feeling??. Continue to COMMUNICATE, COMMUNICATE, COMMUNICATE! Your supports won?t know how to help if you don?t let them be a part of the conversation. This includes communicating with yourself, your supports (even the ones you don?t always see eye to eye with), your psychiatrist, and your therapist! Your mental health needs are important and deserve to be addressed! Keep challenging yourself to engage in activities that YOU enjoy and make YOU feel connected with yourself. These should be healthy activities that make you feel refreshed and give you a sense of emotional release. The relationship you have with yourself is the most important relationship you will ever have! Don?t let yourself go back to ignoring it! Take the leaps. Small leaps give you the confidence and experience to be ready to make the big ones. You don?t want to look back and regret not doing it. Keep going to therapy! Appointments Appointments/Referrals to Other Services:: Pt will follow up with [facility] for individual therapy and medication management. He reports plans to establish care in the next week. Pt will begin IOP aftercare group on 01/01/25.
--- NOTE | 2024-12-26 14:39 | BH.MDN_ITS ---
Multi-Disciplinary Note Note 45-min Individual: Time Started:: 11:17 Date: 12/26/24 Purpose of session/treatment goals addressed:: Purpose of session was to identify treatment progress, complete maintenance plan, and solidify aftercare plans. Eye Contact:: Good Motor Activity:: Appropriate Appearance:: Neat and Casual Speech:: Appropriate Mood:: Euthymic and Anxious Affect:: Congruent Thoughts:: Linear, Logical and No evidence of hallucinations/delusions noted Staff Interventions:: motivational interviewing, CBT techniques, discharge planning, strengths perspective and reviewed DSM-5 Client Response:: Client reported feeling nervous, but accomplished and proud to be successfully discharging from [facility]. Reflected on initially struggling to engage and allow himself to open up in the group environment, but is glad he challenged his social anxiety and distorted thoughts in order to successfully do so. Client stated he is slightly nervous to not have the group support and structure, but is excited that he successfully completed the program. 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 Client reflected on thinking he would ever feel ready to return to work and is proud of the progress he has made in the past 2 months. Went on to report he has seen treatment progress with improved mood, improved use of healthy coping skills to manage anxiety and triggers reminding him of past mistakes, improved self-care and self-compassion, and increased confidence. Client stated he is back to the ?outgoing and content? version of himself he has not seen since 2019. Described being able to successfully be alone with himself and not need a distraction. Client worked with therapist to complete maintenance plan in which he identified potential triggers, warning signs, self-care activities, and healthy coping skills/strategies to best support him moving forward. Client stated he does feel more ready to discharge from program and knows he has the skills necessary to manage his mental health symptoms. Pt proudly described making efforts to improve the quality of his relationships, including taking time to sit and talk with his dad every , as well as continuing to work towards reconnecting with his daughter. Risks/Concerns:: Denies suicidal ideation, plan, or intention to date. future oriented. Progress Toward Goals/Plan:: Pt has responded well to treatment as evidenced by Pt consistently attending IOP sessions and his reduction of DSM-5 scores since admission. Pt was initially more reserved when beginning IOP tx and by discharge he was very engaged, participated in all sessions, and actively provided feedback to fellow participants. Pt applied coping skills outside of IOP and reports overall his mood is improved and he is functioning better than he was several months ago. Pt?s overall symptom reduction is 67% since admission with anxiety decreasing by 80%, depression decreasing by 83%, and symptoms of irritability decreasing by 100%. Pt has increased his ability to manage stressors without avoidance, talk about difficult things, practice self- compassion, and be vulnerable. Pt will follow up with [facility] for ongoing therapy and medication management. Time Stopped:: 12:00
== END 2024-12-26 12:13 | disposition home or self-care (01) ==
LOC: BHIOP 11:20
PROVIDERS: Referring Provider Psychiatry & Neurology Psychiatry; Visit Provider Psychiatry & Neurology Psychiatry
DX: F33.42 Major depressive disorder, recurrent, in full remission (principal); F41.1 Generalized anxiety disorder; F10.91 Alcohol use, unspecified, in remission
CPT/HCPCS: H2012; H2020; S9480; 90834; 90837